=== PATIENT | male | born 1960 | race Caucasian/White ===

== ENCOUNTER 2024-10-06 11:06 | Day surgery (SDC) | payer OTHER, SELFPAY ==
[2024-10-06] VITALS (12 sets, daily range): BP systolic 102–127; BP diastolic 68–86; BMI 39.6
[2024-10-06] MEDS: LOW STRENGTH ASPIRIN 81 MG PO (11:50)
[2024-10-06 11:56] LABS: Hematocrit 50.3 % (39.0-52.0); Hemoglobin 17.5 g/dL (13.0-18.0); Mean Corp Hgb Conc. 34.8 g/dL (33.0-37.0); Mean Corpuscular Hgb 33.7 pg (27.0-31.0); Mean Corpuscular Volume 96.9 fL (80.0-94.0); Mean Platelet Volume 10.8 fL (7.4-10.4); Platelet Count 196 10^3/uL (130-400); Red Blood Cell Count 5.19 10^6/uL (4.70-6.10)
[2024-10-06 12:08] LABS: ALT (SGPT) 62 U/L (0-50); AST (SGOT) 31 U/L (17-59); Albumin 4.8 g/dl (3.5-5.0); Alkaline Phosphatase 86 U/L (38-126); Blood Urea Nitrogen 20 mg/dl (9-20); Calcium 9.5 mg/dl (8.4-10.2); Carbon Dioxide 28 mmol/L (22-30); Chloride 109 mmol/L (98-107); Estimated Creatinine Clearance 81 ml/min; Glucose 95 mg/dl (70-99); Potassium 4.6 mmol/L (3.5-5.1); Sodium 143 mmol/L (135-145); Total Bilirubin 0.8 mg/dl (0.2-1.3); Total Protein 7.6 g/dl (6.3-8.2); eGFR > 60.00
[2024-10-06 12:09] LABS: INR 1.03
[2024-10-06 12:10] LABS: APTT 33.9 Sec (23.4-35.0)
--- NOTE | 2024-10-06 14:19 | ITS.CL.CATH ---
Boring Machine Set Up Operator Jig - Catheterization
Cardiac Catheterization
Procedure Report:
LEFT HEART CATHETERIZATION
Date of Procedure: October 06, 2024
Referring: French Barroso NP and Prince Friend MD
PROCEDURES:
1. Left heart catheterization, coronary angiogram.
2. Moderate sedation.
INDICATION: Abnormal PET/CT stress
ACCESS: Right radial artery, 6Fr. sheath, under US guidance.
HEMODYNAMICS : (mmHg)
AO (s/d) : 115/77
LVEDP : 20
No significant gradient across the aortic valve to suggest aortic stenosis.
CORONARY FINDINGS
Dominance: Right
Left Main Trunk (LMT): Large caliber vessel that gives rise to the LAD and LCx branches left main artery has mild diffuse atherosclerotic plaque.
Left Anterior Descending Artery (LAD): Large caliber vessel that gives off 2 small caliber major diagonal branches as it courses along the anterior inter-ventricular groove before wrapping around the cardiac apex. Ostial to proximal LAD has 80%
stenosis. Mid LAD has diffuse mild to moderate atherosclerotic plaque. D2 is a small caliber vessel with the upper and lower branch with a 70 to 80% stenosis just proximal to the branches.
Left Circumflex Artery (LCx): Large caliber vessel that gives off 2 major obtuse marginal (OM) branches as it courses along the atrio-ventricular (AV) groove. Proximal to midportion of the left circumflex has 2 serial 80 to 85% stenoses just
proximal to the takeoff of OM1 in 2. OM1 has mild diffuse atherosclerotic plaque. OM 2 has a tubular 90% stenosis.
Right Coronary Artery (RCA): Large caliber dominant vessel that gives rise to the posterior descending artery (RPDA) and postero-lateral ventricular (RPLV) branches distally. No proximal to mid RCA has mild to moderate diffuse atherosclerotic
plaque with some ectasia. Mid RCA has 100% chronic total occlusion with [id number] and right to right collaterals.
SEDATION: 27 minutes of procedural sedation was utilized. IV Midazolam and IV Fentanyl were administered. An independent medical art therapist was present to assist with and help manage the patient's level of consciousness and physiologic status.
RADIATION SUMMARY: Fluoro Time (min): 2.1, Dose (mGy): 541.09, DAP (Gy.cm2) : 41.05
Closure Device: There were no immediate intra-procedural complications. The sheath was pulled in the manager cath lab and a vascular-band applied to the right wrist for radial artery hemostasis using the patent hemostasis technique.
CONCLUSIONS
1. Significant multivessel coronary artery disease.
2. Elevated LVEDP at 20 mmHg.
RECOMMENDATIONS
1. Wean radial band per protocol. Monitor right hand perfusion and for bleeding from the radial site following removal of the vascular-band following trans-radial access.
2. Continue aggressive medical therapy and risk factor modification for secondary CAD prevention.
3. CT surgery consult to discuss coronary artery bypass grafting with grafts to LAD, OM 1, OM 2, RPDA with Dr. Bacilio Obregon on October 19, 2024.
Copy to: French Barroso NP and Prince Friend MD
Lia Garcia MD, [facility], [facility]
[2024-10-06] MEDS: NSS 1000 IV (14:49)
== END 2024-10-06 16:33 | disposition home or self-care (01) ==
LOC: CATH 11:06
PROVIDERS: ATTENDING PHYSICIAN Internal Medicine Interventional Cardiology; CONSULT PHYSICIAN Thoracic Surgery (Cardiothoracic Vascular Surgery); FAMILY PHYSICIAN Internal Medicine Rheumatology
DX: I25.10 Atherosclerotic heart disease of native coronary artery without angina pectoris (principal); Z79.82 Long term (current) use of aspirin; E66.9 Obesity, unspecified; I10 Essential (primary) hypertension; Z86.73 Personal history of transient ischemic attack (TIA), and cerebral infarction without residual deficits; E78.00 Pure hypercholesterolemia, unspecified
CPT/HCPCS: 99152; 99153; 80053; 85027; 85610; 85730; 93458; C1894

== ENCOUNTER → 2024-10-21 10:44 | Outpatient (REF) | payer OTHER, SELFPAY | LOC: HWRCS 10:44 | PROVIDERS: ATTENDING PHYSICIAN Thoracic Surgery (Cardiothoracic Vascular Surgery) | DX: I25.10 Atherosclerotic heart disease of native coronary artery without angina pectoris (principal); Z01.810 Encounter for preprocedural cardiovascular examination | CPT/HCPCS: 93306 ==

== ENCOUNTER 2024-10-30 05:25 | Inpatient (IN) | payer OTHER, SELFPAY ==
[2024-10-23 09:24] VITALS: BMI 41.8
[2024-10-23 09:29] LABS: % Basophils 0.5 % (0-2); % Eosinophils 1.1 % (0-6); % Immature Granulocytes 0.4 % (0-0.5); % Lymphocytes 34.3 % (20.5-51.1); % Monocytes 7.5 % (1.7-9.3); % Neutrophils 56.2 % (42.2-75.2); Absolute Eosinophils 0.1 10^3/uL (0-0.7); Absolute Lymphocytes 2.9 10^3/uL (1.2-3.4); Absolute Monocytes 0.6 10^3/uL (0.1-0.6); Absolute Neutrophils 4.8 10^3/uL (1.4-6.5); Hematocrit 45.7 % (39.0-52.0); Hemoglobin 15.9 g/dL (13.0-18.0); Mean Corp Hgb Conc. 34.8 g/dL (33.0-37.0); Mean Corpuscular Hgb 33.3 pg (27.0-31.0); Mean Corpuscular Volume 95.6 fL (80.0-94.0); Mean Platelet Volume 10.4 fL (7.4-10.4); Nucleated Red Blood Cells % 0 % (-); Platelet Count 183 10^3/uL (130-400); Red Blood Cell Count 4.78 10^6/uL (4.70-6.10); Red Cell Dist. Width 11.9 % (11.5-14.5); White Blood Cell Count 8.6 10^3/uL (4.8-10.8)
[2024-10-23 09:38] LABS: INR 0.94; PT 12.9 Sec (11.4-14.6)
[2024-10-23 09:39] LABS: APTT 34.8 Sec (23.4-35.0)
[2024-10-23 09:44] LABS: Urine Albumin 1+ (Neg - Trace); Urine Bilirubin Negative (Negative); Urine Character Clear (Clear); Urine Color Yellow; Urine Glucose Negative (Negative); Urine Ketone Negative (Negative); Urine Leukocyte Negative (Negative); Urine Nitrite Negative (Negative); Urine Occult Blood Negative (Negative); Urine Urobilinogen Negative (Neg - 1+)
[2024-10-23 09:57] LABS: ALT (SGPT) 39 U/L (0-50); AST (SGOT) 25 U/L (17-59); Albumin 4.3 g/dl (3.5-5.0); Alkaline Phosphatase 92 U/L (38-126); Blood Urea Nitrogen 20 mg/dl (9-20); Calcium 9.1 mg/dl (8.4-10.2); Carbon Dioxide 28 mmol/L (22-30); Chloride 108 mmol/L (98-107); Direct Bilirubin 0.1 mg/dl (0.0-0.4); Estimated Creatinine Clearance 84 ml/min; Glucose 111 mg/dl (70-99); Potassium 4.2 mmol/L (3.5-5.1); Sodium 145 mmol/L (135-145); Total Bilirubin 0.5 mg/dl (0.2-1.3); Total Protein 7.1 g/dl (6.3-8.2); eGFR > 60.00
--- NOTE | 2024-10-23 10:13 | CM ---
Chart reviewed. Met with the patient in PAT. Reviewed preoperative and postoperative instructions and restrictions, along with showering guidelines. Gave patient 2 soaps. Patient is agreeable to a home visit by CT Transitional RN. Patient is
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 Patient will be alone but has neighbors to check in on him. Patient's trailer is not his mailing address. Patient's trailer is
located at [address] [place] [address]. Plan is for the patient to return home with CT Transitional RN. C
[2024-10-23 10:16] LABS: Urine Mucus Many; Urine Squamous Cell 0-2 /LPF (Few)
[2024-10-23 10:17] LABS: Urine Amorphous Seen
[2024-10-23 10:20] LABS: Urine Red Blood Cell 0-2 /HPF (0-2); Urine White Cell 0-2 /HPF (0-5)
[2024-10-23 11:04] LABS: Glycohemoglobin (HgbA1c) 5.9 % (4.0-5.6)
[2024-10-30] VITALS (17 sets, daily range): BP systolic 82–110; BP diastolic 50–82; PULSE 2–99; BMI 41.0
[2024-10-30] MEDS: PROTONIX 40 MG PO (05:58)
[2024-10-30] MEDS: MAGNESIUM OXIDE 500 MG PO (05:58)
[2024-10-30] MEDS: LOPRESSOR 25 MG PO (05:58)
[2024-10-30] MEDS: BACTROBAN 2% OINTMENT 1 APPLIC NASAL ×2 (05:58→19:58)
--- NOTE | 2024-10-30 06:11 | PTCARENOTE ---
Patient admitted to CVICU. Admission questions asked. Medication reconciliation performed. Medications administered. Patient clipped and washed w/ CHG cloths. Labs obtained. Dr. Obregon arrived to talk w/ patient. Questions encouraged awaiting
CVOR.
--- NOTE | 2024-10-30 06:12 | W.CVOR.SURPR ---
CVOR Surgeon Immed Pre Op
-
I have examined this patient prior to performance of the scheduled procedure.
The patient's condition is unchanged from the time of the dictated/written History and
Physical and the patient is able to undergo the scheduled procedure.
CABG x 4 + HETAL E
[2024-10-30 07:15] LABS: ACT+ - POC 123 Seconds (82-134)
[2024-10-30 07:37] LABS: Urine Albumin 2+ (Neg - Trace); Urine Bilirubin Negative (Negative); Urine Character Clear (Clear); Urine Color Yellow; Urine Glucose Negative (Negative); Urine Ketone Negative (Negative); Urine Leukocyte Negative (Negative); Urine Nitrite Negative (Negative); Urine Occult Blood Negative (Negative); Urine Specific Gravity 1.025 (<1.030); Urine Urobilinogen Negative (Neg - 1+)
[2024-10-30 07:58] LABS: Urine Mucus Many
[2024-10-30 08:01] LABS: Urine Amorphous Seen; Urine Squamous Cell 0-2 /LPF (Few)
[2024-10-30 08:06] LABS: Urine White Cell 0-2 /HPF (0-5)
[2024-10-30 08:07] LABS: Urine Granular Cast 0-2 /LPF (0)
[2024-10-30 08:09] LABS: Urine Bacteria Few (Negative)
[2024-10-30 09:24] LABS: ACT+ - POC 664 Seconds (82-134)
[2024-10-30 09:35] LABS: B.E. - POC 2.2 mmol/L; Glucose - POC 101 mg/dl (70-99); HCO3 - POC 29 mmol/L (21-28); Hematocrit - POC 41 % PCV (42-52); Hemodilution- POC No; Hemoglobin Calculated - POC 13.9; Lactate - POC 1.24 mmol/L (0.36-0.75); O2 Saturation %Calculated-POC 99.7 % (94-98); PCO2 - POC 52 mmHg (35-48); PO2 - POC 202 mmHg (83-108); Potassium - POC 3.8 mmol/L (3.5-5.1); Sodium - POC 142 mmol/L (136-145); Specimen Type - POC Arterial; pH - POC 7.36 (7.35-7.45)
[2024-10-30 09:48] LABS: ACT+ - POC 602 Seconds (82-134)
[2024-10-30 10:04] LABS: B.E. - POC 4.3 mmol/L; Glucose - POC 139 mg/dl (70-99); HCO3 - POC 29 mmol/L (21-28); Hematocrit - POC 31 % PCV (42-52); Hemodilution- POC Yes; Hemoglobin Calculated - POC 10.5; Lactate - POC 0.89 mmol/L (0.36-0.75); PCO2 - POC 42 mmHg (35-48); PO2 - POC 402 mmHg (83-108); Potassium - POC 4.9 mmol/L (3.5-5.1); Sodium - POC 140 mmol/L (136-145); Specimen Type - POC Arterial; pH - POC 7.45 (7.35-7.45)
[2024-10-30 10:18] LABS: ACT+ - POC 587 Seconds (82-134)
[2024-10-30 10:40] LABS: B.E. - POC 3.7 mmol/L; Glucose - POC 144 mg/dl (70-99); HCO3 - POC 28 mmol/L (21-28); Hematocrit - POC 34 % PCV (42-52); Hemodilution- POC Yes; Hemoglobin Calculated - POC 11.5; Ionized Calcium - POC 1.05 mmol/L (1.15-1.33); Lactate - POC 1.15 mmol/L (0.36-0.75); O2 Saturation %Calculated-POC 99.9 % (94-98); PCO2 - POC 41 mmHg (35-48); PO2 - POC 313 mmHg (83-108); Sodium - POC 141 mmol/L (136-145); Specimen Type - POC Arterial; pH - POC 7.44 (7.35-7.45)
[2024-10-30 10:56] LABS: ACT+ - POC 549 Seconds (82-134)
[2024-10-30 11:19] LABS: ACT+ - POC 123 Seconds (82-134)
[2024-10-30 11:51] LABS: B.E. - POC 1.5 mmol/L; Glucose - POC 141 mg/dl (70-99); HCO3 - POC 27 mmol/L (21-28); Hematocrit - POC 33 % PCV (42-52); Hemodilution- POC Yes; Hemoglobin Calculated - POC 11.3; Ionized Calcium - POC 1.27 mmol/L (1.15-1.33); Lactate - POC 2.47 mmol/L (0.36-0.75); O2 Saturation %Calculated-POC 97.8 % (94-98); PCO2 - POC 45 mmHg (35-48); PO2 - POC 103 mmHg (83-108); Potassium - POC 3.9 mmol/L (3.5-5.1); Sodium - POC 141 mmol/L (136-145); Specimen Type - POC Arterial; pH - POC 7.39 (7.35-7.45)
--- NOTE | 2024-10-30 11:56 | W.PN.CT.SURG ---
CT Surgery Operative Note
-
CARDIAC SURGERY OPERATIVE REPORT
Preoperative Diagnosis: Multivessel Coronary Artery Disease with reduced left ventricular ejection fraction
Postoperative Diagnosis: Same
Procedure(s) Performed:
1. Standard sternotomy with aortic and right atrial cannulation
2. Bilateral internal mammary artery harvesting
3. Multi arterial coronary artery bypass grafting x 4 (In situ TELLO to LAD, NEWTON Y off TELLO to OM1, Ao to RSVG to OM2, and Ao to RSVG to d/RCA/Acute Marginal Branch)
4. Endoscopic vein harvesting of right lower extremity
5. Placement of temporary ventricular pacing wire
6. Transesophageal echocardiography
7. Left atrial appendage exclusion (45mm)
8. Rigid sternal fixation with 3 plates in addition to wires given the use of bilateral internal mammary arteries and is weight
Date of Surgery: 10/30/2024
Comorbidities:
1. Multivessel coronary artery disease with a chronic total occlusion of the RCA and significant proximal LAD disease
2. Reduced left ventricular ejection fraction of 30%, ischemic cardiomyopathy
3. Hypertension
4. Hyperlipidemia
5. History of CVA with possible left atrial thrombus
6. Nephrolithiasis with lithotripsy
7. Former smoker/tobacco abuse
8. Morbidly obese with a BMI of 41
9. Cholelithiasis
Attending Surgeon: Bacilio Obregon MD, MS
Assistants: Bacilio Crocker PA-C (present and necessary to anatomic pathology assistant, retraction, suction, exposure, suture management, and wound closure under my direction), Malena aGn PA-C (endo vein harvest)
Anesthesiology: David Malhotra MD and Lora Ramírez CRNA
Scrub and Circulating RNs: Laura Howard, LUISANA, Amy Adams, LUISANA and Nyla Dey RN
Legal Director: Martin Colon CCP
Anesthesia: GETA
EBL: per perfusion records
Products: None
CPB Time: 92 minutes
Aortic Cross Clamp Time: 78 minutes
Implants: 45 mm clip, serial #[id number], 2 square gold plates and 8 x 14 mm screws and 1 mustache plate with 4 x 16 mm screws
Indication(s) for Procedures: This is a 64-year-old male with significant multivessel coronary artery disease. He has a history of CVA with left atrial thrombus of unknown source or cause. Given his disease pattern, he was referred for surgical
revascularization which at that was appropriate. In addition to his stroke history and questionable thrombus, I felt it was prudent to exclude his left atrial appendage at time of surgery. With his young age and disease pattern, we will plan for
multi arterial revascularization.
Conduit(s) Quality:
TELLO -excellent/good size with excellent flow
NEWTON�excellent, large caliber wide off of TELLO with excellent flow
RSVG -good/some varicosities but overall good size and with minimal thickening
Target(s) Quality:
RCA/acute marginal-good size/mean flow 1 flow probe was approximately 11 cc a minute with a pulsatile index of 3.5
OM1 -good sized target/the NEWTON was grafted here as a Y graft coming off of the TELLO, mean flow down this graft was 21 cc a minute with a pulse index of 2.9
OM2 -good sized target/the vein was grafted here as an end-to-side graft, mean flow in this graft was 20 cc a minute with pulse index of 4.5
LAD -excellent sized target/good visual flow in the LAD territory, mean flow down the TELLO to LAD graft was 22 cc a minute with a pulse index of 2.8
Findings: With the ventricular ejection fraction preoperatively was 30% with regional wall motion abnormalities. There was hypokinesis of the inferior lateral wall. Following surgery his EF improved to 45% on 2 of Dobutrex, there was much better
contraction and movement of the inferior lateral wall. His left atrial appendage was verified to be free of any thrombus or debris preoperatively and found to be totally occlusive postoperatively with a 45 mm device. The TELLO was harvested in a
skeletonized fashion. The NEWTON at the midportion was also harvested in a skeletonized fashion. The NEWTON was wide off of the mid TELLO of the composite graft. Following bypass grafting, test dose cardioplegia was given down each distal and
confirmed patency and hemostasis. Transonic flow probe assessment of all grafts yielded excellent flow. He did not require any blood products. He was placed on low-dose Dobutrex and had a cardiac index of 3. He did not require prolonged
ventricular pacing, he resumed his sinus rhythm after short period of VVI pacing.
Description of Procedure: The patient was taken to the operating room. Their identity and procedure to be performed were verified and they were positioned supine on the operating table. Induction via general anesthesia with endotracheal intubation
was performed and central venous access and arterial monitoring were inserted. A preoperative transesophageal echocardiogram was performed to assess cardiac function and valvular function. The patient was then prepped and draped from chin to feet in
a sterile fashion. A preoperative time-out was performed with all members of the team present. A midline chest incision was performed along with median sternotomy. Simultaneous endoscopic access of the right lower extremity for saphenous vein
harvest was obtained along with administration of an initial 5,000 units of IV heparin. A RulTract sternal retractor was positioned to exposure the left internal mammary bed. The mammary was harvested and found to have good flow. A bulldog clamp was
applied to the distal end of the mammary after dividing it. It was wrapped in a papaverine soaked RayTec and replaced back into the left hemithorax. The Rultract was relocated to the right hemithorax and the midportion of the NEWTON was harvested in
a skeletonized fashion. After transecting the distal end, there is excellent [place] flow. It was then clipped proximally with 2 large clips and placed into a papaverine soaked Ray-Chinedu for later use. The RulTract was exchanged for a median sternal
retractor. The innominate vein was isolated. Full heparinization was given (a total of 60,000 units). We created a pericardial well. The aortic cannulation site was chosen where it was soft, pliable, and free of calcium. Cannulation was performed
with an arterial cannula in the ascending aorta and a triple-stage venous cannula through the right atrial appendage. The arterial cannula line had an appropriate bounce and correlating pressures with test dosing. Next, a root vent/antegrade cannula
was inserted into the ascending aorta. The ACT was confirmed to be over 400 and retrograde autologous priming was performed before commencing cardiopulmonary bypass. The pulmonary artery was away from the aorta to facilitate a clamp site.
The aortic cross-clamp was placed after decreasing the flow on the bypass and mean arterial pressure. A total of 1.2L initial dose of antegrade Del-Nido cardioplegia solution was given and planned for re-dosing every 75 minutes as necessary. There
was rapid electro-mechanical arrest of the heart at 300 cc of cardioplegia. The left ventricle was observed for distention on echocardiogram and manual palpation. Cold slush was placed into a sponge and topically on the RV while we systemically
cooled to 34 degrees centigrade. Once the heart was fully arrested is rotated medially and the left atrial appendage was clipped flush to the base with a 45 mm device.
Since the heart was already positioned to expose the lateral wall, I dissected out the OM1 and OM 2 targets. OM 2 was intramyocardial. A [place] blade was used to expose the OM 1 target and perform the arteriotomy. Coronary Correa scissors were used
to enlarge the incision. The NEWTON was incised. The distal anastomosis was performed using 7-0 prolene in an end-to-side fashion. Appropriate hemostasis and flow were confirmed. The graft was measured for length to accommodate a Y graft to the TLELO.
Next, A suitable site on the second obtuse marginal was chosen. We dissected and prepared the distal target in a similar fashion. An end-to-side anastomosis was created with a 7-0 prolene using the vein graft. Antegrade cardioplegia was
administered into the graft. Appropriate hemostasis and flow were confirmed. The graft was measured for length to the aorta and cut. A suitable target on the mid/distal left anterior descending was identified. We dissected and prepared the distal
target in a similar fashion. We retrieved the TELLO from the chest and created a pericardial opening while being cognizant of the phrenic nerve to facilitate the course of the mammary. The distal end of the mammary was prepped and beveled to size. We
verified orientation and length of the DARYA and found brisk flow. An end-to-side anastomosis was created with a 7-0 prolene. We temporarily released the bulldog clamp on the mammary to inspect flow. Perfusion to the LAD territory was visualized and
hemostasis was confirmed. The bull clamp was replaced on the mammary. At this point the proximal end of the NEWTON graft was anastomosed to the midportion of the TELLO in an end-to-side fashion using 7-0 Prolene. I then rotated the heart in order to
expose any right side target branch, was acute marginal/shallow RPDA that was identified there was a good size. It was dissected out using a [place] blade in the usual fashion and a small coronary arteriotomy was created. The remaining piece of
vein graft was beveled and an side anastomosis was created and the test dosed with antegrade cardioplegia. There was acceptable flows and hemostasis. The heart was filled and the root was distended with antegrade cardioplegia to make final
assessment of graft length and orientation. We created 2 aortotomies using a #11 blade then a 4.0mm aortic punch. The proximal anastomoses were created in an end-to-side fashion using 6-0 prolene. At the the same time, we re-warmed to 36.5 degrees
centigrade. The bulldog clamp was removed from the mammary. Temporary bipolar ventricular pacing wires were placed on the base of the right ventricle. The patient was placed in a Trendelenburg position and flows on bypass were lowered. The aortic
cross clamp was removed and flows were slowly brought back up. All bypass grafts were inspected and were free from kinking or twisting. The distal and proximal anastomoses appeared hemostatic. Once transesophageal echocardiography appeared
satisfactory for de-airing, the flows were temporarily lowered for root vent removal. After verifying acceptable parameters, we initiated weaning from cardiopulmonary bypass. Once we were off cardiopulmonary bypass, the venous cannula was clamped
and removed. A test dose of protamine was administered and the patient was monitored for any adverse reaction before resuming protamine. Once half of the protamine dose was delivered, pump suckers were turned off and the systolic blood pressure was
lowered for aortic decannulation. The aortic cannula was removed and pursestrings were tied down. All cannulation sites were oversewn with a 4-0 prolene. The mammary bed was inspected and hemostasis was confirmed. Once the mediastinum was
hemostatic, 19Fr Jose Guadalupe drain was placed in the left and right pleural cavity and two 24Fr Jose Guadalupe drains were placed within the pericardium. The sternum was approximated with 4 #7 single and 3 #8 double stainless steel wires. Additional 3 plates were
placed given that we use bilateral mammary arteries. Fascia was approximated with #1 vicryl suture. The subcutaneous, dermis and epidermis were closed in layers in a running fashion. The skin wound was cleansed and dressed.
All instrument, sponge, and needle counts were confirmed to be correct x 2 at the end of the operation. The patient was transferred to the cardiac intensive care unit in critical but stable condition.
I, Dr. Bacilio Obregon, was present, scrubbed for, and performed all critical elements of this procedure.
Bacilio Obregon MD, MS
Cardiothoracic Surgeon
[facility]
This operative dictation was created using the [employer] dictation system. Please excuse any grammatical, typographical, or 'sound alike' errors
--- NOTE | 2024-10-30 12:04 | CON.INTV ---
Consultation
Consultation Request
Date/Time Consultation Requested: 10/30/2024 - 112
Date/Time Consultation Performed: 10/30/2024 - 1147
Requesting Provider: TOVA Bunn
Performing Provider: Dr. Stanton
Reason for Consultation: s/p CABG
Medical History
-
Chief Complaint: Elective CABG
History of Present Illness:
64-year-old male former tobacco smoker with a past medical history of multivessel CAD and left atrial thrombus of unknown source who presents for elective CABG. Patient known to the cardiothoracic surgery service, with last visit on 10/19/[address] Obregon. Patient had developed hematuria and his Coumadin was being switched over to aspirin, and this led to additional routine cardiac workup including a PET/CT stress test showing perfusion defects. This led to a left heart catheterization on
10/06/2024 showing significant multivessel CAD with an elevated LVEDP at 20 mmHg. Surgical revascularization was discussed and the patient agreed to an intervention. Today patient underwent CABG x 4 with left atrial appendage exclusion with a 45 mm
device. Patient then transferred to the CVICU for further care, and weigh tank operator services consulted for additional management/recommendations.
When I saw the patient, he was intubated on SIMV at 18/500/10/60%, with PIP 26 cmH2O, VTe 538 cc and breathing at 18 breaths/min. Currently on Levophed at 8 mcg/min, also insulin at 3.5 units/hr and Precedex at 0.5 mcg/kg/hr. Heart rate currently
69, BP via A-line 100/56, BP via NIBP: 82/50, PAP 33/21 and CO/CI: 5.48/2.48. He has mediastinal chest tubes x 2+ bilateral pleural chest tubes
PMHx: Hypertension, history of CVA, nephrolithiasis, multivessel CAD, hyperlipidemia, former tobacco smoker, morbid obesity, history of left atrial thrombus, cholelithiasis
PSHx: Right ureteroscopy with laser lithotripsy x 2, bilateral inguinal hernia repair
Past Medical History
Past Medical History: Other (Above as per HPI)
Past Surgical History: Other (Above as per HPI)
Social History
Tobacco: Former Smoker (Quit 2016)
Alcohol: None
Drug: None
Family History
Family History: Other (Mother: CVA)
Allergies / Home Medications
Allergies
Allergy/AdvReac Type Severity Reaction Status Date / Time
No Known Allergies Allergy Verified 10/21/24 13:47
Home Medications
�Medication �Instructions �Recorded �Confirmed �Last Taken �Type
amlodipine 10 mg tablet 10 mg PO QPM Blood pressure 08/09/21 10/30/24 10/28/24 19:00 History
lisinopril 40 mg tablet (Zestril) 40 mg PO DAILY Blood pressure 08/09/21 10/30/24 10/28/24 08:00 History
aspirin 81 mg tablet 81 mg PO DAILY Blood Clot 10/06/24 10/30/24 10/29/24 08:00 History
Prevention/Tx
atorvastatin 80 mg tablet 80 mg PO QPM #90 tabs 10/06/24 10/30/24 10/28/24 19:00 Rx
metoprolol succinate 25 mg 25 mg PO DAILY Blood Pressure 10/06/24 10/30/24 10/28/24 08:00 History
tablet,extended release 24 hr
nitroglycerin 0.4 mg sublingual 0.4 mg sublingual [id number] PRN 10/06/24 10/30/24 Unknown Rx
tablet chest pain #25 tabs
Review of Systems
-
Unable to Obtain full review of systems at this time due to: Patient Intubation
Vitals / Labs / Diagnostic Testing
Vital Signs
Temp Pulse Resp BP Pulse Ox
96.7 F L 70 12 82/50 89
10/30/24 12:10 10/30/24 12:25 10/30/24 12:25 10/30/24 12:21 10/30/24 12:25
Laboratory Results
10/30/24
12:15
pH 7.33 L
pCO2 50 H
pO2 65 L
HCO3 26.4
O2 Delivery Level
Diagnostic Testing:
Physical Exam
-
HEENT: Normocephalic, Anicteric and Other (ETT in place)
Cardiovascular: S1/S2 and Peripheral Edema (negative)
Respiratory: Wheeze (negative), Rales (negative), Rhonchi (negative), Other (Mechanical breath sounds heard bilaterally) and Other (Mediastinal chest tubes x 2+ bilateral pleural chest tubes)
GI: Soft, Distended (Abdominal obesity), Non Tender and Normal Bowel Sounds
Neurology: Tremors (negative) and Other (Sedated)
Skin: Warm and Dry
General: Respiratory Distress (negative), Comfortable, Fever (negative) and Chills (negative)
Assessment
-
Assessment: 64-year-old male former tobacco smoker with a past medical history of multivessel CAD and left atrial thrombus of unknown source who presents for elective CABG. Patient known to the cardiothoracic surgery service, with last visit on
10/19/[address] Obregon. Patient had developed hematuria and his Coumadin was being switched over to aspirin, and this led to additional routine cardiac workup including a PET/CT stress test showing perfusion defects. This led to a left heart
catheterization on 10/06/2024 showing significant multivessel CAD with an elevated LVEDP at 20 mmHg. Surgical revascularization was discussed and the patient agreed to an intervention. Today patient underwent CABG x 4 with left atrial appendage
exclusion with a 45 mm device. Patient then transferred to the CVICU for further care, and weigh tank operator services consulted for additional management/recommendations.
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
Impression:
#Multivessel CAD with reduced LVEF s/p CABG x 4 (POD #0)
#Left atrial thrombus of unknown source s/p left atrial appendage exclusion with 45 mm device (POD #0)
#Hyperglycemia (mild - HbA1c: 5.9 on 10/23/2024)
#Former tobacco use
#Hypertension
#Hyperlipidemia
#Chronic HFrEF/ICM
#Morbid obesity (BMI: 41)
Plan:
Ventilator settings reviewed
FiO2 will be weaned to maintain SpO2 >90-94%
Minute ventilation will be adjusted
Arterial blood gases will be monitored
Spontaneous breathing trial will be attempted with hopeful extubation after anesthesia/sedation wear off
prn nebulized bronchodilators - not currently bronchospastic
Pulmonary artery catheter parameters will be followed
Pressors/antihypertensive/inotropes/diuretics will be provided as needed
Maintain MAP>65
Replete electrolytes with K>4, Mg>2
Monitor chest tube output (mediastinal chest tubes x 2+ bilateral pleural chest tubes)
Monitor hemoglobin
Monitor platelet count and coags
Transfuse blood products as needed to maintain Hb>7g/dL, plt>50k (given post-operative status)
CT surgery managing chest tubes
Monitor blood sugar to maintain euglycemia with goal BG 110-140
Insulin drip per protocol
Aspiration precautions
VAP prevention protocol
DVT prophylaxis
Early nutrition
Early mobilization
Critical care statement: A total of 41 minutes of critical care time was provided for this patient today. This includes management of ventilator, spontaneous breathing trial, arterial blood gases, pressors, of unstable vital signs, evaluation of the
patient at bedside, reviewing the patient's pertinent medical records including radiographs, microbiology, laboratory evaluations, and discussion with primary team and critical care nursing.
[2024-10-30 12:17] LABS: Glucose - Point of Care 149 mg/dl (70-99)
[2024-10-30] MEDS: LR 250 ML IV ×3 (12:30→23:09)
[2024-10-30 12:32] LABS: B.E. -0.3 mmol/L; HCO3 26.4 mmol/L (21-28); Ionized Calcium 1.14 mMOL/L (1.15-1.33); O2 Saturation % 93.4 % (94-98); PCO2 50 mmHg (35-48); PO2 65 mmHg (83-108); Potassium 3.9 mMOL/L (3.5-5.1); Sodium 137 mMOL/L (136-145); pH 7.33 (7.35-7.45)
[2024-10-30 12:33] LABS: Hematocrit 38.8 % (39.0-52.0); Hemoglobin 13.4 g/dL (13.0-18.0); Platelet Count 149 10^3/uL (130-400)
[2024-10-30] MEDS: KCL 50 IV ×2 (12:43→14:06)
[2024-10-30] MEDS: CALCIUM GLUCONATE 100 IV ×2 (12:43→23:39)
[2024-10-30 12:45] LABS: APTT 32.7 Sec (23.4-35.0); INR 1.35
[2024-10-30 12:46] LABS: Blood Urea Nitrogen 19 mg/dl (9-20); Estimated Creatinine Clearance 91 ml/min; Glucose 147 mg/dl (70-99)
--- NOTE | 2024-10-30 12:47 | W.PN.CARDCBS ---
Addendum entered and electronically signed by Edi Johnson MD 10/30/24 14:37:
I saw and examined the patient.
The TRAY CHECKER or PA's note was reviewed and I agree with the note.
Comment: Intubated and sedated
Neck: Supple, no JVD, HJR, carotids +2 B/L, no bruits bilaterally.
Heart: Non displaced PMI, RRR, no murmurs, No S3, S4, no rubs.
Lungs: Scattered rhonchi
Sternal dressings noted
Extremities: No clubbing, cyanosis or edema bilaterally.
Neuro: Intubated and sedated
Stable cardiac status seen immediately postop. Remains on dobutamine. Remains in sinus rhythm. Continue to follow postop.
Original Note:
Today's Communication / Plan
-
continue post op care
follow oxygenation
wean pressors as able
Impression / Plan
-
Primary Music Journalist: Dr. Friend
Assessment:
-MV CAD with FINE ARTS PACKER of RCA s/p CABG x4 In situ TELLO to LAD, NEWTON Y off TELLO to OM1, Ao to RSVG to OM2, and Ao to RSVG to d/RCA/Acute Marginal Branch, HETAL clip, rigid sternal fixation 10/30/24
-ICM, EF previously 30% with recovery to 50% by echo 11/11
-HTN
-HLD
-History of CVA with HETAL thrombus
-Former smoker
-Obesity
Echo 10/21/2024: EF 50%, basal to mid inferior hypokinesis, mild AR, mildly dilated aortic root and proximal ascending aorta
Plan:
-s/p CABG x4 In situ TELLO to LAD, NEWTON Y off TELLO to OM1, Ao to RSVG to OM2, and Ao to RSVG to d/RCA/Acute Marginal Branch, HETAL clip, rigid sternal fixation 10/30/24
-intubated, sedated
-follow oxygenation, currently 90%
-receiving IVF and on levo@8, dobut @2. wean as able
-CI 2.48
-EKG SR with NSSTS and prolonged QTc, follow
-continue post op care
-preop was on regimen of toprol 25mg daily, lisinopril 40mg daily
-OP follow up with KARLA Molina
-d/w nursing
Progress Note - Music Journalist
Subjective
Date of Service: October 30, 2024
intubated, sedated
Objective
Labs:
10/30/24 12:15
Labs
Hgb 13.4 g/dL (13.0-18.0) 10/30/24 12:15
Hct 38.8 % (39.0-52.0) L 10/30/24 12:15
Plt Count 149 10^3/uL (130-400) 10/30/24 12:15
PT 17.0 Sec (11.4-14.6) H 10/30/24 12:15
INR 1.35 10/30/24 12:15
APTT 32.7 Sec (23.4-35.0) 10/30/24 12:15
Sodium 145 mmol/L (135-145) 10/23/24 08:56
Potassium 4.2 mmol/L (3.5-5.1) 10/23/24 08:56
BUN 19 mg/dl (9-20) 10/30/24 12:15
Creatinine 1.0 mg/dL (0.7-1.3) 10/30/24 12:15
Glucose 147 mg/dl (70-99) H 10/30/24 12:15
Vital Signs and I&O:
Vital Signs
Temp Pulse Resp BP Pulse Ox
96.7 F L 70 12 82/50 89
10/30/24 12:10 10/30/24 12:25 10/30/24 12:25 10/30/24 12:21 10/30/24 12:25
Vital Signs
Temp Pulse Resp BP Pulse Ox
96.7 F L 70 12 82/50 89
10/30/24 12:10 10/30/24 12:25 10/30/24 12:25 10/30/24 12:21 10/30/24 12:25
Intake & Output
10/28/24 10/29/24 10/30/24 10/31/24
07:59 07:59 07:59 07:59
Intake Total 347.3 / 347.3
Output Total 140 / 140
Balance 207.3 / 207.3
Physical Exam
Physical Exam
GEN: No distress, intubated, sedated
HEENT: supple, mmm
LUNGS: CTA B/L, no wheezes/rales
CV: Reg, S1/S2, no murmur
ABD: soft, NT/ND
EXT: No cyanosis, clubbing, edema
NEURO: sedated
SKIN: Warm, pink, dry. No rash. Sternotomy incision c/d/i. CTs in place
--- NOTE | 2024-10-30 12:51 | CM ---
pt in OR today, cm to follow.
[2024-10-30 13:07] LABS: Glucose - Point of Care 144 mg/dl (70-99)
[2024-10-30] MEDS: ANCEF 10 IV ×2 (13:24)
[2024-10-30] MEDS: TYLENOL PO (13:24)
[2024-10-30] MEDS: NEURONTIN PO ×2 (13:24→15:34)
[2024-10-30] MEDS: NSS 500 IV (13:24)
--- NOTE | 2024-10-30 13:37 | PTCARENOTE ---
Pt received from CVOR at 1210; Sedated and intubated; SR with prolonged QT rhythm on monitor; VSS; Epicardial V-wire present and insulated with temporary pacemaker turned off; Distant heart sounds; Trace B/L LE edema; +2 DP and radial pulses
present; Lungs diminished at bases; ETT size 8 positioned and secured at 23 cm right lip; Ventilator settings SIMV 14/500/5/10 FiO2 60% - respirations adjusted to 18 following ABG results; CTx4 to -20 cm wall suction draining bloody drainage - no
air leak, tidaling, or crepitus noted; Hypoactive BS; Sheikh catheter in place draining clear, yellow urine; Right groin puncture site glued and approximated - CDI, Sternal midline incision glued and approximated - CDI, right leg wrapped in KERWIN wrap
- CDI; A-line in left radial artery, [place]-edwige floated to 46 cm in RIJ Cordis; PIVx1 - #16 RAC; Levo/insulin/precedex/dobutamine infusing - see nursing flowsheets for further details; K repleted x2; iCal repleted x1; 250 ml LR bolus given x1; See
nursing documentation for further details
CO: 5.48
CI: 2.48
SVR: 686
[2024-10-30 13:46] LABS: B.E. -1.3 mmol/L; HCO3 24.8 mmol/L (21-28); O2 Saturation % 95.1 % (94-98); PCO2 46 mmHg (35-48); PO2 70 mmHg (83-108); pH 7.34 (7.35-7.45)
[2024-10-30 14:00] LABS: Glucose - Point of Care 171 mg/dl (70-99)
--- NOTE | 2024-10-30 14:57 | W.PN.UPDATE ---
Update Note
Progress Note Update
Perry Yeager is a 64-year-old male who was electively admitted on 10/30/2024 for elective CABG due to exertional chest pain and triple-vessel coronary disease. Patient has past medical history significant for CVA and left atrial thrombosis
of unknown source. He had been on Coumadin anticoagulation therapy which was changed to aspirin monotherapy due to hematuria.
IV fluids: 1800
U.O.:� 400
Blood:� none
Wires:� 1 bipolar V-wire
Drips: Levophed @ 5, Dobutamine @ 2, Precedex @ 0.5, Insulin
�
NEURO: sedated, pupils +2mm B/L
RESP: #8OT @24cm> 500/60%/14/10. Lungs clear B/L. 2 mediastinal (10cc on arrival) and R/L pleural (20cc on arrival) chest tubes to -20cm suction. Sanguineous drainage, no air leak, no crepitus
CV: RRR +S1, S2, no S3, no�rub, no murmur. Dermabond to median sternotomy. RIJ w/[place] locked @ 47cm. PA 38/21; CVP 13; CI 2.04
ABD: round, soft, no BS
EXT: no edema, +2/4 DP pulses B/L, no femoral bruit, RLE KERWIN wrap intact; left radial A-line intact
: Sheikh with clear yellow urine
�
A/P: POD #0 s/p CABG x 4 TELLO to LAD, NEWTON Y off TELLO to OM1, SVG to OM2, SVG to d/RCA/Acute Marginal Branch, left atrial appendage exclusion (45mm), rigid sternal fixation
IMELDA: EF�35% (pre) improved to 45% (post)
- wean and extubate, possible need for BiPAP d/t body habitus
# CAD
- will require ASA, Plavix, statin, beta-cassandra
# HTN
- on Toprol, Amlodipine, Lisinopril
�
# acute surgical blood loss anemia-expected
- trend CBC
# Hx CVA w/residual balance issues
- assess neuro status upon awakening
# Class III Obesity (BMI 42)
- calorie reduced diet
�
# preDM (A1C 5.9)
- insulin infusion x 24h
- consider correctional SSI
�
# Hyperlipidemia
- resume�home Lipitor
[2024-10-30 15:08] LABS: Glucose - Point of Care 140 mg/dl (70-99)
[2024-10-30 15:09] LABS: HCO3 23.7 mmol/L (21-28); O2 Saturation % 96.3 % (94-98); PCO2 43 mmHg (35-48); PO2 73 mmHg (83-108); pH 7.35 (7.35-7.45)
--- NOTE | 2024-10-30 15:17 | PTCARENOTE ---
CPAP trial started at 1515; PEEP adjusted to 5 as per CVNP Rose Mary Cox; RT at bedside; ABG due at 1515
[2024-10-30] MEDS: PACERONE PO (15:34)
[2024-10-30 16:01] LABS: Glucose - Point of Care 142 mg/dl (70-99)
[2024-10-30 16:02] LABS: B.E. - POC -0.4 mmol/L; Blood Urea Nitrogen - POC 19 mg/dl (3-120); Chloride - POC 108 mmol/L (96-111); Creatinine - POC 1.13 mg/dl (0.3-1.0); Glucose - POC 138 mg/dl (70-99); HCO3 - POC 26 mmol/L (21-28); Hematocrit - POC 40 % PCV (42-52); Hemodilution- POC No; Hemoglobin Calculated - POC 13.7; Ionized Calcium - POC 1.35 mmol/L (1.15-1.33); Lactate - POC 2.63 mmol/L (0.36-0.75); O2 Saturation %Calculated-POC 94.9 % (94-98); PCO2 - POC 47 mmHg (35-48); PO2 - POC 80 mmHg (83-108); Potassium - POC 4.6 mmol/L (3.5-5.1); Sodium - POC 141 mmol/L (136-145); Specimen Type - POC Arterial; pH - POC 7.35 (7.35-7.45)
[2024-10-30 16:18] LABS: Hematocrit 40.3 % (39.0-52.0); Hemoglobin 14.2 g/dL (13.0-18.0); Platelet Count 156 10^3/uL (130-400)
--- NOTE | 2024-10-30 16:18 | PTCARENOTE ---
EPOC reviewed with CVNP Rose Mary Cox at bedside; RT at bedside; Patient extubated at 1605 and placed on 6L NC - SpO2 briefly dipped to 85% post extubation but patient instructed on importance of breathing in through nose and now SpO2 90-95% on 6L NC
[2024-10-30] MEDS: OFIRMEV 100 IV (16:32)
[2024-10-30] MEDS: TORADOL 15 MG IV ×2 (16:32→23:39)
[2024-10-30] MEDS: LOW STRENGTH ASPIRIN 81 MG PO (17:15)
[2024-10-30] MEDS: ANCEF 5 IV (17:15)
[2024-10-30] MEDS: LIPITOR PO (17:20)
[2024-10-30 18:07] LABS: Glucose - Point of Care 129 mg/dl (70-99)
[2024-10-30 18:29] LABS: HCO3 22.6 mmol/L (21-28); PCO2 46 mmHg (35-48); PO2 65 mmHg (83-108); Potassium 4.7 mMOL/L (3.5-5.1); Sodium 136 mMOL/L (136-145)
[2024-10-30 18:32] LABS: O2 Therapy Air 6L NC
[2024-10-30] MEDS: SODIUM BICARBONATE 100 MEQ IV (19:03)
--- NOTE | 2024-10-30 19:08 | PTCARENOTE ---
IV Toradol and IV Ofirmev given for pain at 1632; LR bolus 250 ml given x1; ABG drawn and patient placed on BiPAP following ABG results as per NIA Cox; Patient dropping to SpO2 85% multiple times on BiPAP - RT notified and BiPAP settings
adjusted to 16 RR 12/5 10L O2; SpO2 now 93-95%; Report given to operations supervisor 2nd shift RN
--- NOTE | 2024-10-30 19:45 | PTCARENOTE ---
assumed care of pt from previous RN. pt drowsy, oriented x4. GAMBOA appropriately. SR on tele-monitor. temp epicardial v-wires insulated. R IJ cordis w/ [place] floated to 46cm. L radial a-line. all lines leveled, zeroed, flushed. pt on BIPAP- 12/5, 10 L
O2. CTx4 (mediastinal x2, L & R pleural) to -20cm wall suction, draining sanguineous drainage. abd s/n, round, obese. hypoactive BS. robles catheter draining clear, yellow colored urine. all surgical sites stable, CDI. PIV intact. see worklist for
complete nursing assessment, interventions, gtt titrations, VS, and I&Os.
[2024-10-30 19:57] LABS: Glucose - Point of Care 121 mg/dl (70-99)
[2024-10-30] MEDS: SENOKOT-S PO (19:57)
[2024-10-30] MEDS: LEVOPHED 250 IV (20:11)
[2024-10-30] MEDS: DILAUDID 0.25 MG IV (20:16)
[2024-10-30 20:25] LABS: B.E. 1.6 mmol/L; HCO3 28.2 mmol/L (21-28); O2 Saturation % 95.4 % (94-98); PCO2 51 mmHg (35-48); PO2 72 mmHg (83-108); pH 7.35 (7.35-7.45)
[2024-10-30 21:03] LABS: Glucose - Point of Care 131 mg/dl (70-99)
[2024-10-30] MEDS: TYLENOL 1000 MG PO (21:26)
[2024-10-30] MEDS: NEURONTIN 100 MG PO (21:26)
[2024-10-30] MEDS: PACERONE 200 MG PO (21:26)
[2024-10-30 22:07] LABS: Glucose - Point of Care 122 mg/dl (70-99)
[2024-10-30 23:10] LABS: Glucose - Point of Care 126 mg/dl (70-99)
[2024-10-30 23:28] LABS: B.E. 1.3 mmol/L; HCO3 27.2 mmol/L (21-28); Ionized Calcium 1.17 mMOL/L (1.15-1.33); O2 Saturation % 97.4 % (94-98); PCO2 47 mmHg (35-48); PO2 78 mmHg (83-108); Potassium 4.6 mMOL/L (3.5-5.1); pH 7.37 (7.35-7.45)
[2024-10-31] VITALS (24 sets, daily range): BP systolic 70–129; BP diastolic 49–86; PULSE 2–85; BMI 42.2
[2024-10-31 00:13] LABS: Glucose - Point of Care 116 mg/dl (70-99)
--- NOTE | 2024-10-31 00:15 | PTCARENOTE ---
assessment remains unchanged. SR on tele-monitor. pt remains on BIPAP, settings 15/8, [address] drainage WNL. U/O <0.5ml/kg/h. CT PA aware.
[2024-10-31] MEDS: ANCEF 5 IV ×2 (02:09→10:32)
[2024-10-31 02:17] LABS: Glucose - Point of Care 114 mg/dl (70-99)
[2024-10-31 04:08] LABS: Glucose - Point of Care 111 mg/dl (70-99)
[2024-10-31 04:15] LABS: B.E. 2.4 mmol/L; HCO3 27.2 mmol/L (21-28); Ionized Calcium 1.19 mMOL/L (1.15-1.33); O2 Saturation % 98.9 % (94-98); PCO2 42 mmHg (35-48); PO2 87 mmHg (83-108); Potassium 4.5 mMOL/L (3.5-5.1); pH 7.42 (7.35-7.45)
--- NOTE | 2024-10-31 04:15 | PTCARENOTE ---
no acute changes. VSS. AM labs collected and sent. EKG completed. U/O <0.5ml/kg/h. CT PA aware. CT drainage WNL.
[2024-10-31] MEDS: ROXICODONE 2.5 MG PO (04:17)
[2024-10-31] MEDS: FLEXERIL 5 MG PO ×2 (04:18→17:55)
[2024-10-31 04:36] LABS: Hematocrit 35.5 % (39.0-52.0); Hemoglobin 12.2 g/dL (13.0-18.0); Mean Corp Hgb Conc. 34.4 g/dL (33.0-37.0); Mean Corpuscular Hgb 33.2 pg (27.0-31.0); Mean Corpuscular Volume 96.5 fL (80.0-94.0); Mean Platelet Volume 10.7 fL (7.4-10.4); Platelet Count 138 10^3/uL (130-400); Red Blood Cell Count 3.68 10^6/uL (4.70-6.10); Red Cell Dist. Width 11.9 % (11.5-14.5); White Blood Cell Count 14.9 10^3/uL (4.8-10.8)
[2024-10-31 04:51] LABS: Blood Urea Nitrogen 20 mg/dl (9-20); Calcium 8.6 mg/dl (8.4-10.2); Carbon Dioxide 29 mmol/L (22-30); Chloride 111 mmol/L (98-107); Estimated Creatinine Clearance 91 ml/min; Glucose 107 mg/dl (70-99); Magnesium 2.6 mg/dl (1.6-2.3); Potassium 4.6 mmol/L (3.5-5.1); Sodium 141 mmol/L (135-145); eGFR > 60.00
[2024-10-31 05:11] LABS: Glucose - Point of Care 103 mg/dl (70-99)
[2024-10-31 05:25] LABS: B.E. 2.1 mmol/L; HCO3 27.3 mmol/L (21-28); O2 Saturation % 95.4 % (94-98); PCO2 44 mmHg (35-48); PO2 67 mmHg (83-108)
[2024-10-31] MEDS: TYLENOL 1000 MG PO ×2 (06:03→21:12)
[2024-10-31 06:05] LABS: Glucose - Point of Care 91 mg/dl (70-99)
[2024-10-31 07:03] LABS: Glucose - Point of Care 97 mg/dl (70-99)
[2024-10-31] MEDS: NOVOLIN R INSULIN INFUSION 100 IV (07:06)
[2024-10-31 07:12] LABS: B.E. 2.2 mmol/L; HCO3 28.3 mmol/L (21-28); O2 Saturation % 96.7 % (94-98); PCO2 49 mmHg (35-48); PO2 74 mmHg (83-108); pH 7.37 (7.35-7.45)
[2024-10-31 07:14] LABS: O2 Therapy 12L midflow
--- NOTE | 2024-10-31 07:14 | W.PN.CT ---
Addendum entered and electronically signed by Kurt Whitaker MD 10/31/24 09:29:
I saw and examined the patient.
The PA's note was reviewed and I agree with the note.
Comment:
POD#1 s/p CABG x 4; ELAA
Wean O2 as tolerated (bipap overnight for hypercarbia)
D/C dobutamine
D/C SGC
OOB! Incentive Spirometer!
D/C robles (creat 1.0, UO adequate)
Maintain CTs
Original Note:
Today's Communication / Plan
-
-pod #1
-hypoxia/hypercapnia - on bipap 15/8 with 12L O2 overnight. Transitioned to 12L midflow this am
-minimize narcotics/sedation. Few doses of Toradol ordered
-CI 3.47, CO 7.68. Drips: Dobut decreased from 2 to 1 at 6am, Insulin. Levo is off
-CT outputs: 2 meds 130/230, 2 pleur 100/315 in 12/24 hrs
-wean off Dobut, then deline
-d/c insulin
-d/c Robles
-encourage IS, OOB
Assessment / Plan
-
- CAD - s/p CABG x4 (In situ TELLO to LAD, NEWTON Y off TELLO to OM1, Ao to RSVG to OM2, and Ao to RSVG to d/RCA/Acute Marginal Branch); LAAE [45mm]; Rigid sternal fixation with 3 plates in addition to wires given the use of bilateral internal mammary
arteries and his weight by Dr. Obregon on 10/30/24, pod #1
-Intraop IMELDA: LVEF preop was 30% with regional wall motion abnormalities. There was hypokinesis of the inferior lateral wall. Following surgery, his EF improved to 45% on 2 of Dobutrex, there was much better contraction and movement of the
inferior lateral wall. His left atrial appendage was verified to be free of any thrombus or debris preoperatively and found to be totally occlusive postoperatively with a 45 mm device.
- Multivessel coronary artery disease with a chronic total occlusion of the RCA and significant proximal LAD disease
- Reduced left ventricular ejection fraction of 30%, ischemic cardiomyopathy
- Hypertension
- Hyperlipidemia
- History of CVA with possible left atrial thrombus of unknown source or cause
- Nephrolithiasis with lithotripsy
- Former smoker/tobacco abuse
- Class 3 obesity with a BMI of 41
- Cholelithiasis
- Acute postop pulmonary insufficiency with hypercapnia and hypoxia
- Acute postop atelectasis
- Acute postop hypovolemia with subsequent hypervolemia
Discussed patient care with: Nursing and Care Team
Subjective
-
Date of Service: October 31, 2024
Objective Data
-
PT 17.0 Sec (11.4-14.6) H 10/30/24 12:15
INR 1.35 10/30/24 12:15
APTT 32.7 Sec (23.4-35.0) 10/30/24 12:15
Vital Signs
Vital Signs
Temp Pulse Resp BP Pulse Ox
98.2 F 95 13 108/69 94
10/31/24 01:00 10/31/24 01:00 10/31/24 01:00 10/31/24 01:00 10/31/24 01:00
CT Intake/Output/Weight
10/30/24 10/30/24 10/31/24
06:59 18:59 06:59
Intake Total 1163.5 / 1853.1 689.6 / 1853.1
Output Total 765 / 1225 460 / 1225
Balance 398.5 / 628.1 229.6 / 628.1
SaO2: 94
Physical Exam
-
General: Awake and AOx3
Cardiovascular: Regular rate & rhythm, No Murmurs and Rub
Respiratory: Decreased Breath Sounds
Sternum: Stable
Incision: Clean, Dry and Intact
Extremities: Other (trace feet edema b/l with chronic skin changes, 1+ DPs b/l)
Abdomen: soft, nontender, nondistended, + decreased bowel sounds.
Data Reviewed
-
Lab Results: Results Reviewed
Medications: Active Meds Reviewed
Chest X-Ray: Report Reviewed and Image Reviewed
ECG: Report Reviewed and Image Reviewed
--- NOTE | 2024-10-31 08:21 | W.PN.INTV ---
Today's Communication / Plan
Recommendations
Up OOB as tolerated
Pain control
Encourage incentive spirometer use
MAP>65
BG 110-140 -insulin drip still on but is going to be weaned off today
Patient will be downgraded to CVICU�telemetry status later today after insulin drip has been weaned off. Once insulin drip has been weaned off and pt has been downgraded, we will sign off at that time. Please call back with any questions or
concerns.
Assessment
-
Assessment: 64-year-old male former tobacco smoker with a past medical history of multivessel CAD and left atrial thrombus of unknown source who presents for elective CABG. Patient known to the cardiothoracic surgery service, with last visit on
10/19/[address] Obregon. Patient had developed hematuria and his Coumadin was being switched over to aspirin, and this led to additional routine cardiac workup including a PET/CT stress test showing perfusion defects. This led to a left heart
catheterization on 10/06/2024 showing significant multivessel CAD with an elevated LVEDP at 20 mmHg. Surgical revascularization was discussed and the patient agreed to an intervention. Today patient underwent CABG x 4 with left atrial appendage
exclusion with a 45 mm device. Patient then transferred to the CVICU for further care, and pipe fitter welding services consulted for additional management/recommendations.
Chronic conditions [employer]VE[employer]: Hypertension, history of CVA, nephrolithiasis, multivessel CAD, hyperlipidemia, former tobacco smoker, morbid obesity, history of left atrial thrombus, cholelithiasis
Impression:
#Multivessel CAD with reduced LVEF s/p CABG x 4 (POD #1)
#Left atrial thrombus of unknown source s/p left atrial appendage exclusion with 45 mm device (POD #1)
#Hyperglycemia (mild - HbA1c: 5.9 on 10/23/2024)
#Former tobacco use
#Hypertension
#Hyperlipidemia
#Chronic HFrEF/ICM
#Morbid obesity (BMI: 41)
Plan:
Patient successfully extubated to nasal cannula on 10/30/2024, and is currently on midflow nasal cannula at 12 L/min, saturating 94% although breathing comfortably
Continue to wean down supplemental O2 flow rate while maintaining SpO2 >90-94%
prn nebulized bronchodilators - not currently bronchospastic
Encourage incentive spirometer use q1hr while awake
Pulmonary artery catheter parameters will be followed
Pressors/antihypertensive/inotropes/diuretics will be provided as needed
Maintain MAP>65
Replete electrolytes with K>4, Mg>2
Monitor chest tube output (mediastinal chest tubes x 2+ bilateral pleural chest tubes)
Monitor hemoglobin
Monitor platelet count and coags
Transfuse blood products as needed to maintain Hb>7g/dL, plt>50k (given post-operative status)
CT surgery managing chest tubes
Monitor blood sugar to maintain euglycemia with goal BG 110-140
Insulin drip per protocol - plan to be weaned off today
Aspiration precautions
DVT prophylaxis
Early nutrition
Early mobilization
Patient will be downgraded to CVICU�telemetry status later today after insulin drip has been weaned off. Once insulin drip has been weaned off and pt has been downgraded, we will sign off at that time. Please call back with any questions or
concerns. Thank you for allowing us to be involved in the care of this patient.
Total time spent today was 58 minutes for this encounter. Time includes reviewing laboratory test/imaging results, reviewing pertinent medical records, obtaining and reviewing medical history, performing an appropriate exam, ordering medications,
tests and procedures. Time also includes documentation of this encounter, coordinating patient care and communicating with other healthcare professionals. Total time does not include separately billed tests performed on this date of service.
Subjective Dataa
Subjective Data
Date of Service:
Date of Service: October 31, 2024
Chief Complaint: Yarn Twister Follow Up
Subjective:
Patient seen this morning. Feeling well. Currently on insulin drip at 0.8 units/hr, and saturating 94% on 12 L/min via mid flow nasal cannula. Heart rate 82. Currently feels very tired and has chest discomfort at postoperative site.
Review of Systems
General: Other (Negative unless mentioned above)
Objective Data
Data Reviewed
Vital Signs / I&O / Oxygen:
Vital Signs
Temp Pulse Resp BP Pulse Ox
98.3 F 73 16 84/56 96
10/31/24 10:00 10/31/24 10:07 10/31/24 10:07 10/31/24 10:07 10/31/24 10:07
Intake and Output
10/30/24 10/31/24 11/01/24
06:59 06:59 06:59
Intake Total 2064.2 / 2089.1 172.6 / 172.6
Output Total 1565 / 1620 260 / 260
Balance 499.2 / 469.1 -87.4 / -87.4
SaO2 [CPAP/PSV] 93
SaO2 [SIMV] 95
SaO2 96
Nasal Cannula flow liters per 6
minute
Physical Exam
General: Respiratory Distress (negative), Comfortable, Chills (negative) and Sweats (negative)
HEENT: Normocephalic, Anicteric and Other (Thick neck)
Cardiovascular: S1-S2 and Peripheral Edema (Trace lower extremity edema bilaterally)
Respiratory: Wheeze (negative), Rhonchi (negative), Non-Labored Respirations, Stridor (negative), Chest Tube (Mediastinal chest tubes x 2 + bilateral pleural chest) and Other (Coarse breath sounds heard bilaterally)
GI: Soft, Distended (Abdominal obesity), Non Tender and Normal Bowel Sounds
Neurology: Awake, Alert and Tremors (negative)
Skin: Warm, Dry, Cyanosis (negative) and Jaundice (negative)
Labs/Micro/Reports
Lab Data
10/31/24 04:06
10/31/24 04:06
Laboratory Results
10/30/24 10/30/24 10/30/24
12:15 13:22 15:02
PT 17.0 H
INR 1.35
APTT 32.7
pH 7.33 L 7.34 L 7.35
pCO2 50 H 46 43
pO2 65 L 70 L 73 L
HCO3 26.4 24.8 23.7
O2 Delivery Level
10/30/24 10/30/24 10/30/24
18:18 18:23 20:14
PT
INR
APTT
pH Cancelled 7.30 L 7.35
pCO2 Cancelled 46 51 H
pO2 Cancelled 65 L 72 L
HCO3 Cancelled 22.6 28.2 H
O2 Delivery Level Cancelled Air 6l nc Not Reportable
10/30/24 10/30/24 10/30/24
23:21 23:22 23:30
PT
INR
APTT
pH Cancelled 7.37 Cancelled
pCO2 Cancelled 47 Cancelled
pO2 Cancelled 78 L Cancelled
HCO3 Cancelled 27.2 Cancelled
O2 Delivery Level Cancelled Cancelled
10/31/24 10/31/24 10/31/24
04:06 05:14 07:01
PT
INR
APTT
pH 7.42 7.40 7.37
pCO2 42 44 49 H
pO2 87 67 L 74 L
HCO3 27.2 27.3 28.3 H
O2 Delivery Level 12l midflow
[2024-10-31 08:25] LABS: Glucose - Point of Care 107 mg/dl (70-99)
[2024-10-31] MEDS: LOW STRENGTH ASPIRIN 81 MG PO (08:34)
[2024-10-31] MEDS: LIDOCAINE 4% PATCH 1 PATCH TOPICAL (08:34)
[2024-10-31] MEDS: PLAVIX 75 MG PO (08:34)
[2024-10-31] MEDS: NEURONTIN 100 MG PO ×3 (08:34→21:12)
[2024-10-31] MEDS: SENOKOT-S 1 TABLET PO ×2 (08:35→19:40)
[2024-10-31] MEDS: PROTONIX 40 MG PO (08:35)
[2024-10-31] MEDS: MAGNESIUM OXIDE 500 MG PO ×2 (08:35→19:40)
[2024-10-31] MEDS: BACTROBAN 2% OINTMENT 1 APPLIC NASAL ×2 (08:36→19:40)
[2024-10-31] MEDS: LOPRESSOR PO (08:44)
[2024-10-31] MEDS: PACERONE PO (08:45)
--- NOTE | 2024-10-31 08:45 | PTCARENOTE ---
Assumed care of patient at 0700. Pt is drowsy but wakes appropriately. Pt SR with HR 90. BP 114/67 MAP 83. PA 32/13, CVP 13, CO 7.00, CI 3.17, SVR 674. Pulses palpable. Pulse oximetry 94% on 12L midflow, repeat ABG results reviewed with CT HUNTER.
Contacted respiratory therapy to place back on BiPAP. Mediastinal chest tubes x2 and left/right pleural chest tubes in place to suction, no crepitus or air leak noted, drainage serosanguineous. Pt tolerating PO. Sheikh catheter in place draining
yellow urine. Midsternal incision approximated and ABIGAIL. Right leg incision with bee wrap in place. Right IJ cordis in place at 46cm. Left radial Lida intact. Pt remains on Dobutamine and Insulin.
[2024-10-31 10:20] LABS: Glucose - Point of Care 96 mg/dl (70-99)
[2024-10-31] MEDS: TORADOL 15 MG IV ×2 (10:32→19:51)
[2024-10-31] MEDS: NSS 500 IV (10:33)
--- NOTE | 2024-10-31 10:45 | PTCARENOTE ---
Dobutamine off. Pt resting in bed, pt remains drowsy and with continued complaints of pain. BP 70/49 MAP 57. Briefly required Levo but able to quickly titrate off. BP returned to 121/67 MAP 82. Remains on Bipap 15L, pulse oximetry 99%.
[2024-10-31 12:33] LABS: Glucose - Point of Care 94 mg/dl (70-99)
--- NOTE | 2024-10-31 12:52 | W.PN.ANS.POP ---
Anesthesia Post Operative
- Anesthesia Post Op Note
Vital Signs Stable-See Nursing Note: Yes
Airway Patent: Yes
Adequate Pain Control: Yes
Change in Mental Status: No
Current Postoperative Nausea & Vomiting: No
Anesthesia Complications: No
General Anesthetic Recall: No
Unplanned Admission: No
Post Op Hydration Adequate: Yes
--- NOTE | 2024-10-31 13:30 | PTCARENOTE ---
Dobutamine off. Pt remains SR with HR 78. BP 116/60 MAP 76. PA 20/9, CVP 6, CO 4.83, CI 2.19, SVR 1159. Pt de-lined. Sheikh catheter removed. Chest tube dressings changed.
--- NOTE | 2024-10-31 14:27 | W.PN.CARDCBS ---
Today's Communication / Plan
-
Wean pressors as able
May benefit from IV diuresis
Continue beta-cassandra, KERWIN inhibitor
Monitor on telemetry
Impression / Plan
-
Primary Traffic Controller Cable: Dr. Friend
Assessment:
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
-ICM, EF previously 30% with recovery to 50% by echo 11/11
-HTN
-HLD
-History of CVA with HETAL thrombus
-Former smoker
-Obesity
Echo 10/21/2024: EF 50%, basal to mid inferior hypokinesis, mild AR, mildly dilated aortic root and proximal ascending aorta
Plan:
-s/p CABG x4 In situ TELLO to LAD, NEWTON Y off TELLO to OM1, Ao to RSVG to OM2, and Ao to RSVG to d/RCA/Acute Marginal Branch, HETAL clip, rigid sternal fixation 10/30/24
-On Bipap
-receiving IVF and on levo@2, off dobut. wean as able
-EKG SR with NSSTS and prolonged QTc, follow
-continue post op care
-preop was on regimen of toprol 25mg daily, lisinopril 40mg daily
-OP follow up with KARLA Molina
-d/w nursing, CTSx
Progress Note - Traffic Controller Cable
Subjective
Date of Service: October 31, 2024
Patient seen and examined this morning. No acute events overnight. Patient resting comfortably in bed on BiPAP, somnolent but easily arousable. Patient noting incisional chest discomfort but no other pain. Patient denies shortness of breath or
weakness. Patient on Levophed at 2.
Objective
Labs:
10/31/24 04:06
10/31/24 04:06
Labs
Hgb 12.2 g/dL (13.0-18.0) L 10/31/24 04:06
Hct 35.5 % (39.0-52.0) L 10/31/24 04:06
Plt Count 138 10^3/uL (130-400) 10/31/24 04:06
PT 17.0 Sec (11.4-14.6) H 10/30/24 12:15
INR 1.35 10/30/24 12:15
APTT 32.7 Sec (23.4-35.0) 10/30/24 12:15
Sodium 141 mmol/L (135-145) 10/31/24 04:06
Potassium 4.6 mmol/L (3.5-5.1) 10/31/24 04:06
BUN 20 mg/dl (9-20) 10/31/24 04:06
Creatinine 1.0 mg/dL (0.7-1.3) 10/31/24 04:06
Glucose 107 mg/dl (70-99) H 10/31/24 04:06
Vital Signs and I&O:
Vital Signs
Temp Pulse Resp BP Pulse Ox
98.3 F 78 16 129/76 98
10/31/24 13:00 10/31/24 13:02 10/31/24 13:02 10/31/24 11:00 10/31/24 13:02
Vital Signs
Temp Pulse Resp BP Pulse Ox
98.3 F 78 16 129/76 98
10/31/24 13:00 10/31/24 13:02 10/31/24 13:02 10/31/24 11:00 10/31/24 13:02
Intake & Output
10/29/24 10/30/24 10/31/24 11/01/24
06:59 06:59 06:59 06:59
Intake Total 2064.2 / 2089.1 255.6 / 255.6
Output Total 1565 / 1620 390 / 390
Balance 499.2 / 469.1 -134.4 / -134.4
Physical Exam
Physical Exam
GEN: No distress, on BiPAP, following commands
HEENT: supple, mmm
LUNGS: CTA B/L, no wheezes/rales
CV: Reg, S1/S2, no murmur
ABD: soft, NT/ND
EXT: No cyanosis, clubbing, edema
NEURO: sedated
SKIN: Warm, pink, dry. No rash. Sternotomy incision c/d/i. CTs in place
Telemetry shows sinus rhythm
[2024-10-31 14:30] LABS: Glucose - Point of Care 90 mg/dl (70-99)
[2024-10-31] MEDS: OFIRMEV 100 IV (15:56)
[2024-10-31] MEDS: FERRLECIT 110 MG IV (15:56)
[2024-10-31] MEDS: TYLENOL PO (15:56)
[2024-10-31 16:04] LABS: Glucose - Point of Care 104 mg/dl (70-99)
--- NOTE | 2024-10-31 16:51 | PTCARENOTE ---
RN x2 assisted pt to chair. Tolerated well and has remained up in chair without issue. Pt remains SR with HR 84. BP 112/83 MAP 93. Pulse oximetry 96% on 12L midflow. Encouraged use of incentive spirometer. Pt coughing up thick mucus. Insulin gtt
d/c'd per order. Pt remains drowsy and has had continued complaints of pain, Ofirmev administered.
[2024-10-31] MEDS: PACERONE 200 MG PO ×2 (17:00→21:12)
[2024-10-31] MEDS: LIPITOR 80 MG PO (17:55)
[2024-10-31] MEDS: LOPRESSOR 12.5 MG PO (19:39)
--- NOTE | 2024-10-31 19:45 | PTCARENOTE ---
assumed care of pt from previous RN. pt A&Ox4, resting in bed at time of assessment. SR on tele-monitor, w/ occasional PVCs. temp-epicardial v-wires insulated. CTx4 (mediastinal x2, L & R pleural) to -20cm wall suction, draining sanguineous
drainage. POX 94% on 12 L midflow NC. abd s/n, round, obese. hypoactive BS. pt due to void. see bladder scan intervention. all surgical sites stable, CDI. R IJ cordis w/ KVO. PIV intact. see worklist for complete nursing assessment, interventions,
VS, and I&Os.
[2024-11-01] VITALS (13 sets, daily range): BP systolic 97–142; BP diastolic 57–107; PULSE 2–75; BMI 42.1
--- NOTE | 2024-11-01 | PTCARENOTE ---
assessment remains unchanged. pt on BIPAP as ordered @ HS. CT drainage WNL. pt remains DTV. BS per protocol.
[2024-11-01] MEDS: ROXICODONE 5 MG PO ×4 (02:23→19:57)
[2024-11-01] MEDS: FLEXERIL 5 MG PO ×3 (02:23→19:56)
[2024-11-01 03:21] LABS: Hematocrit 36.4 % (39.0-52.0); Hemoglobin 12.3 g/dL (13.0-18.0); Mean Corp Hgb Conc. 33.8 g/dL (33.0-37.0); Mean Corpuscular Hgb 33.5 pg (27.0-31.0); Mean Corpuscular Volume 99.2 fL (80.0-94.0); Platelet Count 127 10^3/uL (130-400); Red Blood Cell Count 3.67 10^6/uL (4.70-6.10); Red Cell Dist. Width 12.2 % (11.5-14.5)
[2024-11-01 03:37] LABS: Blood Urea Nitrogen 22 mg/dl (9-20); Calcium 8.3 mg/dl (8.4-10.2); Carbon Dioxide 32 mmol/L (22-30); Chloride 107 mmol/L (98-107); Estimated Creatinine Clearance 93 ml/min; Glucose 110 mg/dl (70-99); Magnesium 2.6 mg/dl (1.6-2.3); Potassium 4.5 mmol/L (3.5-5.1); Sodium 141 mmol/L (135-145); eGFR > 60.00
--- NOTE | 2024-11-01 04:00 | PTCARENOTE ---
no acute changes. VSS. AM labs collected and sent. pt assisted to stand at bedside to void by 2 RNs.
--- NOTE | 2024-11-01 05:37 | W.PN.CT ---
Addendum entered and electronically signed by Kurt Whitaker MD 11/01/24 10:02:
I saw and examined the patient.
The PA's note was reviewed and I agree with the note.
Comment:
POD#2 S/P CABG x 4, ELAA
No major overnight events. BiPAP overnight; currently on 10L midflow w/ SpO2 96%
De-line
D/C pleural CTs - maintain mediastinal CTs - no effusions on CXR
Diuresis today
OOB/IS/ambulate later
Original Note:
Today's Communication / Plan
-
-pod #2
-hypoxia/hypercapnia - on bipap /, EPAP increased for suspected AGUS breathing pattern. on 6 L NC
-minimize narcotics/sedation
-Off gtts, de-lined
-CT outputs: 2 meds 80/240, 2 pleur 30/105 in 12/24 hrs
-encourage IS, OOB as much as possible
Assessment / Plan
-
- CAD - s/p CABG x4 (In situ TELLO to LAD, NEWTON Y off TELLO to OM1, Ao to RSVG to OM2, and Ao to RSVG to d/RCA/Acute Marginal Branch); LAAE [45mm]; Rigid sternal fixation with 3 plates in addition to wires given the use of bilateral internal mammary
arteries and his weight by Dr. Obregon on 10/30/24, pod #2
-Intraop IMELDA: LVEF preop was 30% with regional wall motion abnormalities. There was hypokinesis of the inferior lateral wall. Following surgery, his EF improved to 45% on 2 of Dobutrex, there was much better contraction and movement of the
inferior lateral wall. His left atrial appendage was verified to be free of any thrombus or debris preoperatively and found to be totally occlusive postoperatively with a 45 mm device.
- Multivessel coronary artery disease with a chronic total occlusion of the RCA and significant proximal LAD disease
- Reduced left ventricular ejection fraction of 30%, ischemic cardiomyopathy
- Hypertension
- Hyperlipidemia
- History of CVA with possible left atrial thrombus of unknown source or cause
- Nephrolithiasis with lithotripsy
- Former smoker/tobacco abuse
- Class 3 obesity with a BMI of 41
- Cholelithiasis
- Acute postop pulmonary insufficiency with hypercapnia and hypoxia
- Acute postop atelectasis
- Acute postop hypovolemia with subsequent hypervolemia
Subjective
-
Date of Service: November 01, 2024
Objective Data
-
Lab Results
11/01/24 02:28
11/01/24 02:28
PT 17.0 Sec (11.4-14.6) H 10/30/24 12:15
INR 1.35 10/30/24 12:15
APTT 32.7 Sec (23.4-35.0) 10/30/24 12:15
Vital Signs
Vital Signs
Temp Pulse Resp BP Pulse Ox
98.9 F 75 16 108/74 96
11/01/24 00:00 11/01/24 04:00 11/01/24 04:00 11/01/24 04:00 11/01/24 04:00
CT Intake/Output/Weight
10/31/24 10/31/24 11/01/24
06:59 18:59 06:59
Intake Total 900.7 / 2089.1 307.1 / 407.1 100 / 407.1
Output Total 800 / 1620 495 / 1130 635 / 1130
Balance 100.7 / 469.1 -187.9 / -722.9 -535 / -722.9
SaO2: 96
Physical Exam
-
General: Awake and Oriented
Cardiovascular: Regular rate & rhythm, No Murmurs and No Rub
Respiratory: Clear and Decreased Breath Sounds
Sternum: Stable
Incision: Clean, Dry and Intact
Extremities: Edema +1
Data Reviewed
-
Lab Results: Results Reviewed
Medications: Active Meds Reviewed
Chest X-Ray: Report Reviewed
ECG: Report Reviewed
[2024-11-01] MEDS: TYLENOL 1000 MG PO ×2 (06:25→13:32)
[2024-11-01] MEDS: BACTROBAN 2% OINTMENT 1 APPLIC NASAL ×2 (08:54→20:15)
[2024-11-01] MEDS: PLAVIX 75 MG PO (08:54)
[2024-11-01] MEDS: LOW STRENGTH ASPIRIN 81 MG PO (08:54)
[2024-11-01] MEDS: PROTONIX 40 MG PO (08:54)
[2024-11-01] MEDS: NEURONTIN 100 MG PO ×3 (08:55→21:48)
[2024-11-01] MEDS: MAGNESIUM OXIDE 500 MG PO ×2 (08:55→19:58)
[2024-11-01] MEDS: PACERONE 200 MG PO ×3 (08:55→21:47)
[2024-11-01] MEDS: SENOKOT-S 1 TABLET PO ×2 (08:55→19:58)
[2024-11-01] MEDS: LOPRESSOR 12.5 MG PO ×2 (08:55→19:58)
--- NOTE | 2024-11-01 08:55 | PTCARENOTE ---
Assumed care of patient at 0700. Pt is awake and oriented. Pt is overall flat and withdrawn. Pt with continued complaints of pain, PRN Roxicodone administered. Pt remains SR with HR 79. BP 114/57 MAP 71. Epicardial V wire in place, insulated. Pacing
box on and set aside, settings 80/10/2. Pulse oximetry 96% on 12L midflow. Encouraged use of IS. Chest tubes x [address], no sign of air leak or crepitus, drainage serosanguineous. Pt tolerating pills, refusing meals. Midsternal incision
approximated and ABIGAIL. Right leg incision approximated and ABIGAIL. Right IJ cordis in place with KVO. Pt currently OOB in chair. Offered pt several suggestions to adjust for comfort, however pt refused suggestions.
[2024-11-01] MEDS: LIDOCAINE 4% PATCH 1 PATCH TOPICAL (08:59)
[2024-11-01] MEDS: LASIX 20 MG IV (09:00)
[2024-11-01] MEDS: NSS IV (10:48)
--- NOTE | 2024-11-01 12:45 | PTCARENOTE ---
Left and right pleural chest tubes d/c'd per order. Cordis d/c'd per order. Pt assisted back OOB to chair. Pt remains SR with HR 68. BP 103/69 MAP 81. Pulse oximetry 94% on 8L. Pt more interactive and socializing with visitors at bedside.
[2024-11-01] MEDS: FERRLECIT 110 MG IV (13:58)
[2024-11-01] MEDS: LIPITOR 80 MG PO (17:06)
[2024-11-01] MEDS: LASIX 40 MG IV (17:08)
[2024-11-01] MEDS: TYLENOL 650 MG PO (19:57)
--- NOTE | 2024-11-01 20:00 | PTCARENOTE ---
Assumed care of patient at 1900. Patient OOB in chair at start of shift. Alert and Oriented, Follows all commands. NSR on monitor, BP stable, Trace edema bilateral lower extremities. Lungs Course and diminished at bases, on 6 L NC, productive
strong cough, IS 500, Bipap at night/sleep 2200. Bowel sounds hyperactive, Belly round non tender. Voiding on own, no issues. Ambulated to bathroom., I person assist. No BM, is passing gas. Sternal incision CDI open to air. Pacer wires
insulated , pacer on but not attached. see wordlist for detailed assessment.
[2024-11-01] MEDS: TYLENOL PO (21:51)
[2024-11-02] VITALS (21 sets, daily range): BP systolic 89–137; BP diastolic 59–108; PULSE 72; O2SAT 95–96; BMI 41.7
--- NOTE | 2024-11-02 | PTCARENOTE ---
patient asleep on Bipap, denies pain at this time, vital signs stable.
[2024-11-02 05:11] LABS: Hematocrit 35.9 % (39.0-52.0); Hemoglobin 12.2 g/dL (13.0-18.0); Mean Corpuscular Hgb 33.2 pg (27.0-31.0); Mean Corpuscular Volume 97.8 fL (80.0-94.0); Mean Platelet Volume 10.9 fL (7.4-10.4); Platelet Count 142 10^3/uL (130-400); Red Blood Cell Count 3.67 10^6/uL (4.70-6.10); Red Cell Dist. Width 12.1 % (11.5-14.5); White Blood Cell Count 11.7 10^3/uL (4.8-10.8)
[2024-11-02] MEDS: TYLENOL 1000 MG PO ×3 (05:13→20:53)
[2024-11-02] MEDS: ROXICODONE 5 MG PO (05:13)
[2024-11-02 05:21] LABS: Blood Urea Nitrogen 22 mg/dl (9-20); Calcium 8.2 mg/dl (8.4-10.2); Carbon Dioxide 31 mmol/L (22-30); Chloride 104 mmol/L (98-107); Estimated Creatinine Clearance 84 ml/min; Glucose 107 mg/dl (70-99); Magnesium 2.5 mg/dl (1.6-2.3); Potassium 4.3 mmol/L (3.5-5.1); Sodium 139 mmol/L (135-145); eGFR > 60.00
--- NOTE | 2024-11-02 05:25 | PTCARENOTE ---
Patient alert and oriented tooking off bipap, placed on 6 L NC, labs drawn medication given for pain.
--- NOTE | 2024-11-02 05:48 | W.PN.CT ---
Today's Communication / Plan
-
-pod #3
-hypoxia/hypercapnia - on bipap 05/03, EPAP increased for suspected AGUS breathing pattern. remains on 6 L NC
-minimize narcotics/sedation
-CT outputs: 2 meds 30/120 in 12/24 hrs
-diuresis with 20 IV lasix in AM, 40 IV in PM, 1600 out in 24 hrs + incontinent episode
-encourage IS, OOB as much as possible
Assessment / Plan
-
- CAD - s/p CABG x4 (In situ TELLO to LAD, [place] Y off TELLO to OM1, Ao to RSVG to OM2, and Ao to RSVG to d/RCA/Acute Marginal Branch); LAAE [45mm]; Rigid sternal fixation with 3 plates in addition to wires given the use of bilateral internal mammary
arteries and his weight by Dr. Obregon on 10/30/24, pod #3
-Intraop IMELDA: LVEF preop was 30% with regional wall motion abnormalities. There was hypokinesis of the inferior lateral wall. Following surgery, his EF improved to 45% on 2 of Dobutrex, there was much better contraction and movement of the
inferior lateral wall. His left atrial appendage was verified to be free of any thrombus or debris preoperatively and found to be totally occlusive postoperatively with a 45 mm device.
- Multivessel coronary artery disease with a chronic total occlusion of the RCA and significant proximal LAD disease
- Reduced left ventricular ejection fraction of 30%, ischemic cardiomyopathy
- Hypertension
- Hyperlipidemia
- History of CVA with possible left atrial thrombus of unknown source or cause
- Nephrolithiasis with lithotripsy
- Former smoker/tobacco abuse
- Class 3 obesity with a BMI of 41
- Cholelithiasis
- Acute postop pulmonary insufficiency with hypercapnia and hypoxia
- Acute postop atelectasis
- Acute postop hypovolemia with subsequent hypervolemia
Subjective
-
Date of Service: November 02, 2024
Objective Data
-
Lab Results
11/02/24 04:53
11/02/24 04:53
PT 17.0 Sec (11.4-14.6) H 10/30/24 12:15
INR 1.35 10/30/24 12:15
APTT 32.7 Sec (23.4-35.0) 10/30/24 12:15
Vital Signs
Vital Signs
Temp Pulse Resp BP Pulse Ox
98.1 F 81 18 127/101 96
11/01/24 22:19 11/02/24 03:00 11/02/24 00:12 11/02/24 02:00 11/02/24 03:00
CT Intake/Output/Weight
11/01/24 11/01/24 11/02/24
06:59 18:59 06:59
Intake Total 100 / 407.1 20 / 170 150 / 170
Output Total 635 / 1130 1715 / 1745 30 / 1745
Balance -535 / -722.9 -1695 / -1575 120 / -1575
SaO2: 96
Physical Exam
-
General: Awake, Oriented and AOx3
Cardiovascular: Regular rate & rhythm and No Murmurs
Respiratory: Clear and Decreased Breath Sounds
Sternum: Stable
Incision: Clean, Dry and Intact
Extremities: No Edema
Data Reviewed
-
Lab Results: Results Reviewed
Medications: Active Meds Reviewed
ECG: Report Reviewed
--- NOTE | 2024-11-02 08:00 | PTCARENOTE ---
Patient received from shift supervisor RN; AAOx3, spontaneously responds to RN and follows commands; Forgetful, withdrawn; NSR on monitor; VSS; Epicardial V-wire present and insulated with temporary pacemaker turned off; Distant heart sounds; Trace B/L
LE edema; +2 DP and radial pulses present; Shallow respirations; Lungs diminished at bases; SpO2 93-97% on 6L NC; Occasional, productive cough with thick, recinos sputum; IS 750 ml; CTx2 to -20 cm wall suction draining bloody drainage - no air leak,
tidaling, or crepitus noted; Patient urinating yellow urine in urinal; Right groin puncture site glued and approximated - CDI, Sternal midline incision glued and approximated - CDI, right leg incision glued and approximated - CDI; PIVx1 - #16 RAC;
See nursing documentation for further details
[2024-11-02] MEDS: MAGNESIUM OXIDE PO ×2 (08:19→20:48)
[2024-11-02] MEDS: NEURONTIN 100 MG PO ×3 (08:25→20:53)
[2024-11-02] MEDS: PROTONIX 40 MG PO (08:25)
[2024-11-02] MEDS: PLAVIX 75 MG PO (08:25)
[2024-11-02] MEDS: LIDOCAINE 4% PATCH 1 PATCH TOPICAL (08:25)
[2024-11-02] MEDS: LOW STRENGTH ASPIRIN 81 MG PO (08:25)
[2024-11-02] MEDS: PACERONE 200 MG PO ×2 (08:25→16:05)
[2024-11-02] MEDS: SENOKOT-S 1 TABLET PO ×2 (08:25→20:47)
[2024-11-02] MEDS: LOPRESSOR 12.5 MG PO ×2 (08:25→20:47)
[2024-11-02] MEDS: BACTROBAN 2% OINTMENT 1 APPLIC NASAL ×2 (08:26→20:47)
[2024-11-02] MEDS: LASIX 40 MG IV (10:09)
[2024-11-02] MEDS: KCL 20 MEQ PO (10:09)
[2024-11-02] MEDS: NSS IV (10:55)
--- NOTE | 2024-11-02 11:46 | W.PN.CARDCBS ---
Addendum entered and electronically signed by Radha Wray DO 11/02/24 13:16:
I saw and examined the patient.
The Claims Consultant's note was reviewed and I agree with the note.
Comment: Seen and examined. Chart/telemetry reviewed. Anticipating chest tube removal later today. Denies chest pain suggestive of angina. No dizziness or palpitations. Denies shortness of breath.
GEN: No distress, awake, Ox3, sitting in chair on oxygen
HEENT: mmm
LUNGS: Mildly decreased breath sound at bases + CT
CV: Reg, S1/S2, no murmur, rub or gallop
ABD: soft, BS+, NT/ND
EXT: Trace edema
Plan:
Multivessel coronary artery disease s/p CABG x4 In situ TELLO to LAD, [place] Y off TELLO to OM1, Ao to RSVG to OM2, and Ao to RSVG to d/RCA/Acute Marginal Branch, HETAL clip, rigid sternal fixation 10/30/24
- hypoxia/hypercapnia, initially required on Bipap after extubation. Now on 4 L via nasal cannula.
-minimize narcotics/sedation
-CT management per CTS; possibly out today
- Continue IV diuresis
- Telemetry: Sinus rhythm with ectopy on prophylactic amiodarone per CT surgery protocol
- Continue Plavix, aspirin, Lopressor. Preop was on regimen of toprol 25mg daily, lisinopril 40mg daily. If blood pressure allows would add back KERWIN/ARB or Arni in an effort to optimize GDMT.
- Labs reviewed and are stable.
- Continue post op care
-encourage IS, OOB as much as possible
-Continue PT/OT efforts
- OP follow up with KAR[facility] Molina has been arranged
- d/w nursing, CTS
Original Note:
Today's Communication / Plan
-
Continue to wean oxygen as able
Encouraged incentive spirometer and patient to ambulate more
Consider addition of KERWIN/ARB/Arni
Continue Lopressor, aspirin, Plavix, prophylactic amiodarone and atorvastatin
Impression / Plan
-
Primary Drill Sharpener: Dr. Friend
Assessment:
-MV CAD with STUDENT OUTREACH COORDINATOR of RCA s/p CABG x4 In situ TELLO to LAD, NEWTON Y off TELLO to OM1, Ao to RSVG to OM2, and Ao to RSVG to d/RCA/Acute Marginal Branch, HETAL clip, rigid sternal fixation 10/30/24
-ICM, EF previously 30% with recovery to 50% by echo
-HTN
-HLD
-History of CVA with HETAL thrombus
-Former smoker
-Obesity
Echo 10/21/2024: EF 50%, basal to mid inferior hypokinesis, mild AR, mildly dilated aortic root and proximal ascending aorta
Intraop IMELDA 10/30/24: LVEF preop was 30% with regional wall motion abnormalities. There was hypokinesis of the inferior lateral wall. Following surgery, his EF improved to 45% on 2 of Dobutrex, there was much better contraction and movement of the
inferior lateral wall. His left atrial appendage was verified to be free of any thrombus or debris preoperatively and found to be totally occlusive postoperatively with a 45 mm device.
Plan:
- Multivessel coronary artery disease s/p CABG x4 In situ TELLO to LAD, NEWT[place] Y off TELLO to OM1, Ao to RSVG to OM2, and Ao to RSVG to d/RCA/Acute Marginal Branch, HETAL clip, rigid sternal fixation 10/30/24
- hypoxia/hypercapnia, initially required on Bipap after extubation. Now on 4 L via nasal cannula. Wean as able
- brooke@2, off dobut. wean as able
- All chest tubes removed as of 11/02/2024. Chest x-ray without pneumothorax.
- Per review of telemetry patient remains in sinus rhythm with occasional PVCs on prophylactic amiodarone. EKG 10/31/2024 shows sinus rhythm with QTc 447 ms. Continue to follow
- Continue Plavix, aspirin, Lopressor. Preop was on regimen of toprol 25mg daily, lisinopril 40mg daily. If blood pressure allows would add back KERWIN/ARB or Arni in an effort to optimize GDMT.
- Labs reviewed and are stable.
- Continue post op care
- OP follow up with [facility] Tracy has been arranged
- d/w nursing, CTS
Progress Note - Drill Sharpener
Subjective
Date of Service: November 02, 2024
Patient seen and examined. Patient sitting in chair on oxygen. Reports he was able to work with cardiac rehab and walked short distance around the unit earlier today. Continues to note some sternal incisional discomfort but otherwise feels well.
Objective
Labs:
11/02/24 04:53
11/02/24 04:53
Labs
Hgb 12.2 g/dL (13.0-18.0) L 11/02/24 04:53
Hct 35.9 % (39.0-52.0) L 11/02/24 04:53
Plt Count 142 10^3/uL (130-400) 11/02/24 04:53
PT 17.0 Sec (11.4-14.6) H 10/30/24 12:15
INR 1.35 10/30/24 12:15
APTT 32.7 Sec (23.4-35.0) 10/30/24 12:15
Sodium 139 mmol/L (135-145) 11/02/24 04:53
Potassium 4.3 mmol/L (3.5-5.1) 11/02/24 04:53
BUN 22 mg/dl (9-20) H 11/02/24 04:53
Creatinine 1.1 mg/dL (0.7-1.3) 11/02/24 04:53
Glucose 107 mg/dl (70-99) H 11/02/24 04:53
Vital Signs and I&O:
Vital Signs
Temp Pulse Resp BP Pulse Ox
98.5 F 76 16 131/82 96
06/16/25 07:43 11/02/24 10:52 11/02/24 10:00 11/02/24 10:52 11/02/24 10:54
Vital Signs
Temp Pulse Resp BP Pulse Ox
98.5 F 76 16 131/82 96
11/02/24 07:43 11/02/24 10:52 11/02/24 10:00 11/02/24 10:52 11/02/24 10:54
Intake & Output
10/31/24 11/01/24 11/02/24 11/03/24
06:59 06:59 06:59 06:59
Intake Total 2064.2 / 2089.1 407.1 / 407.1 270 / 270
Output Total 1565 / 1620 1130 / 1130 2395 / 2395 20 / 20
Balance 499.2 / 469.1 -722.9 / -722.9 -2125 / -2125 -20 / -20
Physical Exam
Physical Exam
GEN: No distress, awake, Ox3, sitting in chair on oxygen
HEENT: supple, anicteric, mmm
LUNGS: Mildly decreased breath sound at bases otherwise CTA, no wheezes/rales
CV: Reg, S1/S2, no murmur, rub or gallop
ABD: soft, BS+, NT/ND
EXT: Trace edema bilaterally
NEURO: Gross non-focal
SKIN: No rash, no clubbing or cyanosis
--- NOTE | 2024-11-02 13:05 | PTCARENOTE ---
IV Lasix 40 mg and PO K 20 mEq ordered and given; V-wire pulled; CT's removed by RN at bedside - VSS and no complications noted; Echo completed
[2024-11-02] MEDS: FERRLECIT 110 MG IV (13:46)
--- NOTE | 2024-11-02 16:41 | PTCARENOTE ---
Patient ambulating in hallways with RN; Oxygen weaned down to 1L NC
[2024-11-02] MEDS: LIPITOR 80 MG PO (17:01)
--- NOTE | 2024-11-02 18:06 | CM ---
dc plans remain home when medically stable with f/u ct transitional care nurse visit
--- NOTE | 2024-11-02 20:25 | PTCARENOTE ---
received pt from previous rn. pt sitting in chair at time of assessment. VSS, Pt AAOx4, NSR per tele monitor HR 80s, +pulses, trace generalized edema, pox 94% on RA lungs diminished, +bs, pt voiding clear yellow urine in bathroom. all surgical sites
intact, ct dressing c/d/i. piv intact. plan of care discussed and questions encouraged
--- NOTE | 2024-11-02 21:30 | PTCARENOTE ---
pt ambulating in hallway w/ RN.
[2024-11-02] MEDS: PACERONE 400 MG PO (22:41)
[2024-11-03] VITALS (7 sets, daily range): BP systolic 93–134; BP diastolic 58–92; PULSE 84; O2SAT 91–97; BMI 41.2
--- NOTE | 2024-11-03 00:09 | PTCARENOTE ---
pt resting comfortably in bed. VSS, NSR per tele monitor HR 70s, assessment remains unchanged
[2024-11-03] MEDS: ROXICODONE 5 MG PO (00:39)
--- NOTE | 2024-11-03 04:18 | PTCARENOTE ---
routine labs obtained, VSS, NSR per tele monitor, assessment remains unchanged
[2024-11-03 04:20] LABS: Ionized Calcium 1.14 mMOL/L (1.15-1.33)
[2024-11-03 04:33] LABS: Hematocrit 35.6 % (39.0-52.0); Hemoglobin 12.2 g/dL (13.0-18.0); Mean Corp Hgb Conc. 34.3 g/dL (33.0-37.0); Mean Corpuscular Hgb 33.3 pg (27.0-31.0); Mean Corpuscular Volume 97.3 fL (80.0-94.0); Mean Platelet Volume 10.6 fL (7.4-10.4); Platelet Count 143 10^3/uL (130-400); Red Blood Cell Count 3.66 10^6/uL (4.70-6.10); White Blood Cell Count 10.1 10^3/uL (4.8-10.8)
[2024-11-03 04:56] LABS: Blood Urea Nitrogen 22 mg/dl (9-20); Calcium 8.7 mg/dl (8.4-10.2); Carbon Dioxide 31 mmol/L (22-30); Chloride 104 mmol/L (98-107); Estimated Creatinine Clearance 77 ml/min; Glucose 109 mg/dl (70-99); Magnesium 2.6 mg/dl (1.6-2.3); Potassium 4.2 mmol/L (3.5-5.1); Sodium 140 mmol/L (135-145); eGFR > 60.00
[2024-11-03] MEDS: CALCIUM GLUCONATE 130 MG IV (06:12)
[2024-11-03] MEDS: TYLENOL 1000 MG PO (06:12)
--- NOTE | 2024-11-03 06:27 | W.PN.CT ---
Today's Communication / Plan
-
-No major issues overnight. Hemodynamically and neurologically intact
-Off all drips
-Repeat echo yesterday showed LVEF of 45-50%
-Postop hypotension has improved
-Noted to be a bit tachycardic with ambulation, BB increased
-F/U 2-view cxr
-Encourage use of IS
-OOB into chair/Ambulate
-Home today
Assessment / Plan
-
- CAD - s/p CABG x4 (In situ TELLO to LAD, NEWTON Y off TELLO to OM1, Ao to RSVG to OM2, and Ao to RSVG to d/RCA/Acute Marginal Branch); LAAE [45mm]; Rigid sternal fixation with 3 plates in addition to wires given the use of bilateral internal mammary
arteries and his weight by Dr. Obregon on 10/30/24, pod #4
-Intraop IMELDA: LVEF preop was 30% with regional wall motion abnormalities. There was hypokinesis of the inferior lateral wall. Following surgery, his EF improved to 45% on 2 of Dobutrex, there was much better contraction and movement of the
inferior lateral wall. His left atrial appendage was verified to be free of any thrombus or debris preoperatively and found to be totally occlusive postoperatively with a 45 mm device.
- Multivessel coronary artery disease with a chronic total occlusion of the RCA and significant proximal LAD disease
- Reduced left ventricular ejection fraction of 30%, ischemic cardiomyopathy
- Hypertension
- Hyperlipidemia
- History of CVA with possible left atrial thrombus of unknown source or cause
- Nephrolithiasis with lithotripsy
- Former smoker/tobacco abuse
- Class 3 obesity with a BMI of 41
- Cholelithiasis
- Acute postop pulmonary insufficiency with hypercapnia and hypoxia
- Acute postop atelectasis
- Acute postop hypovolemia with subsequent hypervolemia
Discussed patient care with: Cardiology, Nursing, Respiratory Therapy, Pharmacy and Care Team
Subjective
-
Date of Service: November 03, 2024
Pt c/o mild incisional pain, otherwise feels well. Ambulating halls withhout difficulty
Objective Data
-
Lab Results
11/03/24 04:11
11/03/24 04:11
PT 17.0 Sec (11.4-14.6) H 10/30/24 12:15
INR 1.35 10/30/24 12:15
APTT 32.7 Sec (23.4-35.0) 10/30/24 12:15
Vital Signs
Vital Signs
Temp Pulse Resp BP Pulse Ox
97.9 F 80 20 116/78 96
11/03/24 04:17 11/03/24 06:00 11/03/24 04:17 11/03/24 03:40 11/03/24 04:17
CT Intake/Output/Weight
11/02/24 11/02/24 11/03/24
06:59 18:59 06:59
Intake Total 250 / 270
Output Total 680 / 2395 570 / 1220 650 / 1220
Balance -430 / -2125 -570 / -1220 -650 / -1220
SaO2: 96 (RA)
Physical Exam
-
General: Awake, Oriented and AOx3
Cardiovascular: Regular rate & rhythm, No Murmurs, No Rub and No Gallop
Respiratory: Decreased Breath Sounds (at bases, otherwise clear)
Sternum: Stable
Incision: Clean, Dry, Intact and Dressing Intact
Extremities: Other (+trace edema)
Data Reviewed
-
Lab Results: Results Reviewed
Medications: Active Meds Reviewed
Chest X-Ray: Report Reviewed and Image Reviewed
ECG: Report Reviewed and Image Reviewed
[2024-11-03] MEDS: SENOKOT-S 1 TABLET PO (07:21)
[2024-11-03] MEDS: BACTROBAN 2% OINTMENT 1 APPLIC NASAL (07:21)
[2024-11-03] MEDS: NEURONTIN 100 MG PO (07:22)
[2024-11-03] MEDS: LOW STRENGTH ASPIRIN 81 MG PO (07:22)
[2024-11-03] MEDS: TOPROL XL 25 MG PO (07:22)
[2024-11-03] MEDS: PACERONE 200 MG PO (07:22)
[2024-11-03] MEDS: PROTONIX 40 MG PO (07:22)
[2024-11-03] MEDS: COZAAR 25 MG PO (07:22)
[2024-11-03] MEDS: PLAVIX 75 MG PO (07:22)
--- NOTE | 2024-11-03 08:06 | PTCARENOTE ---
Patient received from hourly shift manager RN; AAOx3, spontaneously responds to RN and follows commands; Forgetful; NSR on monitor; VSS; Distant heart sounds; Trace B/L LE edema; +2 DP and radial pulses present; SpO2 93-97% on RA; Occasional, productive
cough with thick, recinos sputum; IS 2000 ml; Patient urinating yellow urine in urinal; Right groin puncture site glued and approximated - CDI, Sternal midline incision glued and approximated - CDI, right leg incision glued and approximated - CDI;
PIVx1 - #16 RAC; See nursing documentation for further details
[2024-11-03] MEDS: LASIX 40 MG PO (09:54)
[2024-11-03] MEDS: KCL 20 MEQ PO (09:54)
--- NOTE | 2024-11-03 10:18 | W.DCSUMMARY ---
Discharge Summary
Discharge Data
Date of Admission: 10/30/24
Date of Discharge: 11/03/24
-
Pending Results: No
Hospital Course
Primary care physician: Dr. Rose
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 Prince Friend
Inpatient consultants: [facility], [employer]
Procedures:
1. CABG x4 (TELLO to LAD, NEWTON-TELLO to OM1, Ao-RSVG-OM2, and Ao-RSVG-d/RCA/Acute Marg[place] Branch); eLAA (45mm), Rigid sternal fixation with 3 plates in addition to wires
Primary Diagnosis:
1. Coronary Artery Disease
Secondary Diagnoses:
1. Hypertension
2. Hyperlipidemia
3. Nephrolithiasis with lithotripsy
4. Ischemic Cardiomyopathy (EF 30%)
5. CVA
6. Left Atrial Thrombus of unknown source
HPI: Mr. Perry Yeager is a 64-year-old male with a PMHx of CAD, ICM (EF 30%), HTN, HLD, CVA, Left Atrial Thrombus of unknown source (Coumadin -> ASA due to bleeding), and nephrolithiasis who presented underwent outpatient consultation for
revascularization of his coronary artery disease. 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 He was referred
for CABG with Dr. Obregon in which he underwent CABG x4 with exclusion of HETAL on 10/30/[address] Bacilio Obregon.
Hospital course: Mr. Perry Yeager is a 64-year-old male with a PMHx of CAD, ICM (EF 30%), HTN, HLD, CVA, Left Atrial Thrombus of unknown source (Coumadin -> ASA due to bleeding), and nephrolithiasis who presented underwent outpatient consultation
for revascularization of his coronary artery disease. On 10/30/24, he presented for elective CABG x 4 with eLAA and sternal plating with Dr. Bacilio Obregon. Please see surgeons operative report for complete surgical detail. In progressive fashion, "Kyle"Toy was weaned from the ventilator and extubated to BiPap due to hypoventilation and hypoxia. Respiratory status improved with pulmonary hygiene, diuresis, and ambulation. Vasopressors were weaned post-operatively and home medications were
gradually re-introduced and modified. Central lines, chest tubes, and epicardial pacing wires were discontinued without issue. Postoperative TTE (11/02/24) was obtained to assess LV function without inotropic support which showed EF 45-50%,
hypokinesis and paradoxical septal motion consistent with postoperative status. In comparison to his pre-operative IMELDA (10/30/24), EF was 35%. Cardiology was consulted for assistance in post-operative management. GDMT was re-introduced as able for
ICM. Pre-operative KERWIN-i was discontinued and ARB was started with consideration of transitioning to Entresto as an outpatient. On post-operative day 4, Mr. Yeager was tolerating his diet, tolerating ambulation on room air, and deemed stable for
discharge to home. He will be followed at home with our Transitional Care Nursing team within 2-3 days from discharge with plan to follow-up with the Cardiac Surgery SENIOR LIVING ADVISOR in 4-weeks. He will follow-up with Cardiology following discharge for further
medical management. He was discharged home with Lasix 40 mg PO daily for 5 days with correlating Potassium Chloride PO. Gabapentin was continued for 14 days to assist with post-operative pain management. He will continue ASA 81/Plavix 75 mg for
30-days then transition to ASA 81 mg indefinitely.
Home medication changes:
- See attached document
Discharge Plan
-
Patient Disposition: Home (Routine Discharge)
Discharge Diagnosis/Procedures: CAD - s/p CABG x4 with eLAA [45mm] and rigid sternal fixation (3-plates) with 3 plates in addition to wires given the use of bilateral internal mammary arteries and his weight by Dr. Obregon on 10/30/24
Condition: Good
Diet: Low Fat, Low Cholesterol and Low Sodium
Activity: As tolerated
Driving Restrictions: Not until seen by your Dr
Bathing Restrictions: OK to Shower
Other Services: Cardiac Rehab
Specialty Instructions: Weigh Daily- Call MD for wt gain/loss 3 lbs overnight/5 lbs in 1 week
Activity Restrictions/Additional Instructions:
ACTIVITY:
-No strenuous activity: no heavy lifting, pushing, pulling anything over 15 pounds for one month
-continue to use stairs as tolerated
DRIVING RESTRICTIONS:
-No driving for one month or until approved by your surgeon
WOUND CARE:
-Shower daily. Use soap & water.
-No lotions, creams or powders on incision area.
DIET:
-continue a low fat/low cholesterol diet.
-IF you are diabetic, continue carb controlled diet.
CARDIAC REHAB:
- Please make appointment to start in 5-6 weeks with your local hospital program. (See Cardiac Rehabilitation Discharge Booklet).
- Please call [facility] to schedule Cardiac Rehab. [phone].
SPECIALTY INSTRUCTIONS:
-Weigh yourself daily. Call your physician for any weight gain/loss of 3 lbs overnight or 5 lbs in one week.
-REPORT any clicking noise or uneven appearance of your sternum to your surgeon immediately.
-If you smoke, you are instructed to quit. The [place] smoking hotline phone number is [phone]
Referrals:
CT Transitional Care Nurse [Outside]
Referral Note: The Cardiothoracic Transitional Care Nurse will call you to set up a visit in 1-2 days.
BENI MC DO [Family Provider, Family Practice]
Prince Friend MD [Non-Admitting Privileges, Cardiology] - 12/10/24 9:40 am
Mame Fields CRNP [Specified Professional Personl, Cardiac Surgery] - 11/30/24 1:45 pm
Prescriptions:
New
furosemide 40 mg Tablet
40 mg PO DAILY Qty: 5 0RF
acetaminophen 325 mg Tablet
650 mg PO Q6HPRN PRN (Reason: mild pain,headache,temp >101F ) Qty: 0 0RF
clopidogrel 75 mg Tablet
75 mg PO DAILY Qty: 30 0RF
potassium chloride 20 mEq Tablet,Er Particles/Crystals
20 meq PO DAILY Qty: 5 0RF
losartan 25 mg Tablet
25 mg PO DAILY 60 Days Qty: 60 0RF
gabapentin 100 mg Capsule
100 mg PO TID 14 Days Qty: 42 0RF
oxycodone 5 mg Tablet
2.5 - 5 mg PO Q6HPRN PRN (Reason: moderate-severe pain) Qty: 10 0RF
sennosides-docusate sodium 8.6-50 mg Tablet
1 tab PO BIDPRN PRN (Reason: Constipation) Qty: 0 0RF
Continued
aspirin 81 mg Tablet
81 mg PO DAILY
metoprolol succinate 25 mg Tablet Extended Release 24 Hr
25 mg PO DAILY
atorvastatin 80 mg tablet
80 mg PO QPM Qty: 90 3RF
Discontinued
amlodipine 10 MG tablet
10 mg PO QPM
lisinopril [Zestril] 40 MG tablet
40 mg PO DAILY
nitroglycerin 0.4 mg tablet, sublingual
0.4 mg sublingual [id number] PRN (Reason: chest pain) Qty: 25 2RF
Patient Comments:
Not Taken
Discharge Orders:
Discharge Patient (As Directed); Ordered 11/03/24
Ordered By: Fidelina Pulliam
Care Plan Goals
Care Plan Goals:
Problem: Readiness for enhanced knowledge related to diagnosis and treatment plan
Goal: Understand your diagnosis and treatment plan needs, including medications if applicable.
Instructions: Know your diagnosis, underlying causes and treatment plan options, including medications if applicable. Consult with your health care team to learn about your diagnosis and treatment plan, including medications if applicable.
Discharge Date and Time
Print Language: BENGALI
--- NOTE | 2024-11-03 11:12 | CM ---
CM following for DC planning needs.
Patient DC to home today.
DC plan is for home w/ CT Transitional Care RN.
No other needs noted.
[2024-11-03] MEDS: MILK OF MAGNESIA 30 ML PO (11:15)
[2024-11-03] MEDS: NSS IV (12:14)
--- NOTE | 2024-11-03 13:01 | PTCARENOTE ---
2 view CXR completed; Stairs completed with cardiac rehab; CHG shower done
--- NOTE | 2024-11-03 14:39 | PTCARENOTE ---
Telemetry pack and PIVx1 removed; Patient states full understanding of discharge instructions and has no further questions at this time; VSS; Patient belongings taken with patient; Patient taken to family member's car by RN
== END 2024-11-03 15:26 | disposition home or self-care (01) | DRG 235 ==
LOC: CVICU 05:25
PROVIDERS: Anesthesiology; Clinical Nurse Specialist Acute Care; Nurse Practitioner; Physician Assistant Medical; ADMITTING PHYSICIAN Thoracic Surgery (Cardiothoracic Vascular Surgery); CONSULT PHYSICIAN Internal Medicine Cardiovascular Disease; CONSULT PHYSICIAN Internal Medicine Critical Care Medicine; FAMILY PHYSICIAN Student in an Organized Health Care Education/Training Program
PROC: 5A1221Z Performance of Cardiac Output, Continuous (ICD-10-PCS; 2024-10-30)
PROC: 021109W Bypass Coronary Artery, Two Arteries from Aorta with Autologous Venous Tissue, Open Approach (ICD-10-PCS; 2024-10-30)
PROC: 02L70CK Occlusion of Left Atrial Appendage with Extraluminal Device, Open Approach (ICD-10-PCS; 2024-10-30)
PROC: 02100Z9 Bypass Coronary Artery, One Artery from Left Internal Mammary, Open Approach (ICD-10-PCS; 2024-10-30)
PROC: B24BZZ4 Ultrasonography of Heart with Aorta, Transesophageal (ICD-10-PCS; 2024-10-30)
PROC: 02100Z8 Bypass Coronary Artery, One Artery from Right Internal Mammary, Open Approach (ICD-10-PCS; 2024-10-30)
PROC: 06BP4ZZ Excision of Right Saphenous Vein, Percutaneous Endoscopic Approach (ICD-10-PCS; 2024-10-30)
PROC: 5A09357 Assistance with Respiratory Ventilation, Less than 24 Consecutive Hours, Continuous Positive Airway Pressure (ICD-10-PCS; 2024-10-30)
DX: I25.10 Atherosclerotic heart disease of native coronary artery without angina pectoris (principal); J95.1 Acute pulmonary insufficiency following thoracic surgery; I50.22 Chronic systolic (congestive) heart failure; Z68.41 Body mass index [BMI] 40.0-44.9, adult; D62 Acute posthemorrhagic anemia; J98.11 Atelectasis; I95.81 Postprocedural hypotension; E86.1 Hypovolemia; E87.70 Fluid overload, unspecified; Y83.2 Surgical operation with anastomosis, bypass or graft as the cause of abnormal reaction of the patient, or of later complication, without mention of misadventure at the time of the procedure; I25.82 Chronic total occlusion of coronary artery; I25.5 Ischemic cardiomyopathy; I11.0 Hypertensive heart disease with heart failure; E78.5 Hyperlipidemia, unspecified; E66.01 Morbid (severe) obesity due to excess calories; I51.3 Intracardiac thrombosis, not elsewhere classified; R73.03 Prediabetes; G47.33 Obstructive sleep apnea (adult) (pediatric); I69.398 Other sequelae of cerebral infarction; Z87.891 Personal history of nicotine dependence; Z87.442 Personal history of urinary calculi
CPT/HCPCS: 93308; 36415; 71045; 71046; 80048; 80053; 81003; 81015; 82248; 82330; 82565; 82805; 82947; 82962; 83036; 83735; 84132; 84302; 84520; 85014; 85018; 85025; 85027; 85049; 85610; 85730; 86850; 86900; 86901; 86920; 87070; 93005; 93312; 93320; 93325; 93880; 93923; 93930; 94002; 94660; J2916